=== PATIENT | male | born 1970 | race Caucasian/White ===

== ENCOUNTER 2019-01-29 02:23 | Inpatient (IN) | payer OTHER ==
[2019-01-29] VITALS (45 sets, daily range): BP systolic 59–146; BP diastolic 29–98; Ht 180.3 cm; Wt 89.5 kg
[~2019-01-29] VITALS: Ht 180.3 cm; Wt 89.5 kg
--- NOTE | ~2019-01-29 | HEMODYNAMI ---
PATIENT:ELIANE BARRAGAN MEDICAL RECORD: [id number] : 70 LOCATION:[facility] ADMISSION DATE: 01/29/19 Generatedon:01/29/20194:46 Patient name: ELIANE BARRAGAN Patient #: [id number] SSN: : 1970 Date of study: 01/29/2019 Page: Of Hemodynamic Procedure Report Patient Data Patient Demographics Procedure consent was obtained First Name: ELIANE Gender: Male Last Name: YUNG : 1970 Patient #: [id number] Age: 48 year(s) Race: Unknown Additional ID: [id number] Contact details [address]: [address] [place] [address] State: [place] City: [place] Zip code: [address] Admission Admission Data Admission Date: 01/29/2019 Admission Time: 2:48 Room #: [id number] Weight (lbs.): 185.19 Weight (kg.): 84 Lab Results Lab Result Date: 01/29/2019 Lab Result Time: 0:00 Biochemistry Name Units Result Min Max BUN mg/dl 15 --(--*-)-- 7 18 Creatinine mg/dl 1.2 --(---*)-- 0.6 1.3 CBC Name Units Result Min Max Hemoglobin g/dl 16.4 --(--*-)-- 13.5 17.5 Procedure Procedure Types Cath Procedure Diagnostic Procedure [facility] w/Coronaries PCI Procedure 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 or Stent AMI-BMS/ED Initial Procedure Description Procedure Date Procedure Date: 01/29/2019 Procedure Start Time: 4:25 Procedure End Time: 4:40 Procedure Staff Name Function Omero Bray MD Performing Physician Luba Rhodes RT Scrub Emile Anderson RN Nurse Eulalio Wyatt RT Monitor Procedure Data Cath Procedure Fluoroscopy Diagnostic fluoroscopy Total fluoroscopy Time: 3.6 time: 3.6 min min Diagnostic fluoroscopy Total fluoroscopy dose: 637 dose: 637 mGy mGy Contrast Material Contrast Material Type Amount (ml) Isovue 300 78 Entry Location Entry Primary Successful Side Size Upsize Upsize Entry Closure Succes sful Closure Location (Fr) 1 (Fr) 2 (Fr) Remarks Device Remarks Femoral Right 6 Fr Exoseal artery Short Estimated blood loss: 10 ml Diagnostic catheters Device Type Used For End Catheter Placement MULTIPACK JL 4.0 5Fr Procedure catheter MULTIPACK 3DRC 5Fr Procedure catheter MULTIPACK Pigtail 5 Fr Procedure catheter Procedure Complications No complications Procedure Medications Medication Administration Route Dosage Oxygen etCO2 Nasal cannula 2 l/min Heparin Flush Bag added to field 2 bags (1000units/500ml NS) 0.9% NaCl I.V. 100 ml/hr Lidocaine 2% added to field 20 Fentanyl I.V. 50 mcg Versed I.V. 1 mg Fentanyl I.V. 50 mcg Versed I.V. 1 mg Fentanyl I.V. 50 mcg Versed I.V. 1 mg Fentanyl I.V. 50 mcg Fentanyl I.V. 50 mcg Heparin Bolus I.V. 5000 units Integrilin (Bolus I.V. 7.3 ml 2mg/ml) Integrilin (Bolus wasted 2.7 ml 2mg/ml) Integrilin (Bolus I.C. 7.3 ml 2mg/ml) Integrilin (Bolus wasted 2.7 ml 2mg/ml) Integrilin Drip I.V. drip 13.4 ml/hr (75mg/100ml) Fentanyl I.V. 50 mcg Hemodynamics Rest HGB: 16.4 (g/dl) Heart Rate: 73 (bpm) Pressure Samples Time Site Value (mmHg) Purpose Heart Use Rate(bpm) 4:28 AO 109/82(93) Snapshot 91 Snapshots Pre Cath Intra NCS Post Cath Vital Signs Time Heart Resp SPO2 etCO2 NIBP (mmHg) Rhythm Pain Sedation Rate (ipm) (%) (mmHg) Status Level (bpm) 4:16:12 76 17 100 15.8 120/51(92) NSR 0 (11) 10(A) , No pain 4:20:19 79 17 100 19.5 132/94(114) NSR 0 (11) 10(A) , No pain 4:24:36 72 16 98 24.1 132/90(115) NSR 0 (11) 10(A) , No pain 4:28:47 94 17 80 31.6 137/94(110) NSR 0 (11) 9(A) , No pain 4:33:08 104 17 98 0 137/87(106) NSR 0 (11) 9(A) , No pain 4:37:22 99 17 99 37.6 126/82(108) NSR 0 (11) 9(A) , No pain 4:42:02 98 16 100 33.1 127/93(103) NSR 0 (11) 10(A) , No pain 4:43:38 95 17 100 36.1 133/90(99) NSR 0 (11) 10(A) , No pain Medications Time Medication Route Dose Verified Delivered Reason Notes Effectiveness by by 4:17:19 Oxygen etCO2 2 Omero Emile Per physician Nasal l/min Katarina Anderson RN cannula 4:17:28 Heparin Flush added 2 Omero Emile used for Bag to bags Katarina Anderson RN procedure (1000units/500ml field NS) 4:17:36 0.9% NaCl I.V. 100 Omero Emile Per physician ml/hr Katarina Anderson RN 4:17:45 Lidocaine 2% added 20ml Omero Emile used for to vial Katarina Anderson RN procedure field 4:23:57 Fentanyl I.V. 50 Omero Emile for sedation mcg Katarina Anderson RN 4:24:04 Versed I.V. 1 mg Omero Emile for sedation Katarina Anderson RN 4:25:24 Fentanyl I.V. 50 Omero Emile for sedation mcg Katarina Anderson RN 4:25:29 Versed I.V. 1 mg Omero Emile for sedation Katarina Anderson RN 4:27:01 Fentanyl I.V. 50 Omero Emile for sedation mcg Katarina Anderson RN 4:27:05 Versed I.V. 1 mg Omero Emile for sedation Katarina Anderson RN 4:29:21 Fentanyl I.V. 50 Omero Emile for sedation mcg Katarina Anderson RN 4:32:06 Fentanyl I.V. 50 Omero Emile for sedation mcg Katarina Anderson RN 4:32:17 Heparin Bolus I.V. 5000 Omero Emile for units Katarina Anderson RN anticoagulation 4:32:31 Integrilin I.V. 7.3 Omero Emile for (Bolus 2mg/ml) ml Katarina Anderson RN antiplatelet therapy 4:32:40 Integrilin wasted 2.7 Omero Baptiste for (Bolus 2mg/ml) ml Katarina Anderson RN antiplatelet therapy 4:34:17 Integrilin I.C. 7.3 Omero Baptiste for (Bolus 2mg/ml) ml Katarina Anderson RN antiplatelet therapy 4:36:16 Fentanyl I.V. 50 Omero Baptiste for sedation mcg Katarina Anderson RN 4:38:37 Integrilin wasted 2.7 Omero Baptiste for (Bolus 2mg/ml) ml Katarina Anderson RN antiplatelet therapy 4:38:54 Integrilin Drip I.V. 13.4 Omero Baptiste for (75mg/100ml) drip ml/hr Katarina Anderson RN antiplatelet therapy Procedure Log Time Note 3:59:56 Eulalio Wyatt RT(R) sent for patient. Start room use. 3:59:57 Time tracking: Regular hours (M-F 7:00 - 5:00) 4:00:01 Plan of Care:Hemodynamics will remain stable., Cardiac rhythm will remain stable., Comfort level will be maintained., Respiratory function will remain adequate., Patient/ family verbilizes understanding of procedure., Procedure tolerated without complication., Recovers from procedure without complications.. 4:00:10 Use device set Femoral Dx 4:00:16 Use device set TAUTH PCI 4:00:24 ACIST Hand Control (57350) opened to sterile field. 4:00:25 ACIST Manifold (63774) opened to sterile field. 4:00:27 ACIST Syringe (44872) opened to sterile field. 4:00:27 Bag Decanter (2002S) opened to sterile field. 4:00:28 Medline Cath Pack ([id number]) opened to sterile field. 4:00:30 Tegaderm 4 x 4 (1626W) opened to sterile field. 4:00:32 DIAGNOSTIC WIRE .035 260cm J wire (458538) opened to sterile field. 4:00:33 INFLATOR Merit BasixCompak (TO1160) opened to sterile field. 4:00:37 CHOICE PT Extra Support 182cm wire ([id number]) opened to sterile field. 4:00:39 SHEATH 6FR [place] (USR331) opened to sterile field. 4:11:17 Patient received from ED to CCL 1 Alert and oriented. Tansferred to table in Supine position. 4:11:17 Warm blankets applied, and bk hugger turned on for patient comfort. 4:11:18 Correct patient and procedure confirmed by team. 4:11:20 Signed procedure consent form obtained from patient. 4:11:21 ECG and BP/O2 sat monitors applied to patient. 4:14:32 Vital chart was started 4:16:30 Baseline sample Acquired. 4:16:34 Rhythm: w/ ST elevation 4:16:35 Full Disclosure recording started 4:16:39 H&P Date Dictated: 01/29/2019 Emergent; H&P N/A. 4:16:39 Pre-procedure instructions explained to patient. 4:16:40 Pre-op teaching completed and patient verbalized understanding. 4:16:44 Family unavailable. 4:16:45 Patient NPO since Midnight. 4:16:47 Is the patient allergic to Iodine/contrast media? No. 4:16:49 Is patient on blood thinner?Yes 4:16:52 ACC The patient was administered the following blood thiners within the last 24 hours: ACCPlavix 4:17:01 Patient diabetic? No. 4:17:04 Previous problem with sedation/anesthesia? No ? 4:17:05 Snore? Yes 4:17:06 Sleep apnea? No 4:17:07 Deviated septum? No 4:17:08 Opens mouth fully? Yes 4:17:09 Sticks out tongue? Yes 4:17:11 Airway obstruction? No ? 4:17:13 Dentures? Yes OUT 4:17:17 Pre procedure: right dorsailis pedis pulse 1+ Palpable, but thready & weak; easily obliterated 4:17:19 Oxygen 2 l/min etCO2 Nasal cannula was administered by Emile Anderson RN; Per physician; 4:17:28 Heparin Flush Bag (1000units/500ml NS) 2 bags added to field was administered by Emile Anderson RN; used for procedure; 4:17:31 Patient pain scale 4/10 Physician notified.. 4:17:36 0.9% NaCl 100 ml/hr I.V. was administered by Emile Anderson RN; Per physician; 4:17:38 IV patent on arrival in right forearm with 0.9% NaCl at [facility]. 4:17:41 Lab results completed and on chart. 4:17:44 Right groin area was prepped with chlora-prep and draped in sterile fashion 4:17:45 Lidocaine 2% 20ml vial added to field was administered by Emile Anderson RN; used for procedure; 4:17:46 Alarms reviewed by R. N. 4:17:47 Sharps counted by scrub and verified by R.N. 4:18:09 Physician paged 4:21:38 Patient Weight : 185.19 lbs 4:23:35 Lab Result : BUN 15 mg/dl 4::35 Lab Result : Hemoglobin 16.4 g/dl 4::35 Lab Result : Creatinine 1.2 mg/dl 4:23:39 --------ALL STOP TIME OUT------ 4:23:40 Final Timeout: patient, procedure, and site verified with staff and physician. All members of the team are in agreement. 4:23:42 Right groin site verified by team. 4:23:45 Maximum allowable Isovue 300 dose 300ml. Physician notified. (300ml for normal creatinines. For patients with creatinine of 1.7 or higher multiply weight(kg) x 5 divided by creatinine.) 4:23:49 Fire Safety Assessment: A--An alcohol-based skin anteseptic being used preoperatively., C--Open oxygen or nitrous oxide is being used., D--An ESU, laser, or fiber-optic light is being used. 4:23:52 Physical assessment completed. ASA score P 3 - A patient with severe systemic disease as per Omero Bray MD. 4:23:55 Sedation plan: IV Moderate Sedation Medication:Versed, Fentanyl 4:23:57 Fentanyl 50 mcg I.V. was administered by Emile Anderson RN; for sedation; 4:24:04 Versed 1 mg I.V. was administered by Emile Anderson RN; for sedation; 4:25:13 Procedure started. 4:25:17 Local anesthetic to right femoral artery with Lidocaine 2% by Omero Bray MD.INITIAL ACCESS ONLY 4:25:24 Fentanyl 50 mcg I.V. was administered by Emile Anderson RN; for sedation; 4:25:29 Versed 1 mg I.V. was administered by Emile Anderson RN; for sedation; 4:27:01 Fentanyl 50 mcg I.V. was administered by Emile Anderson RN; for sedation; 4:27:05 Versed 1 mg I.V. was administered by Emile Anderson RN; for sedation; 4:27:55 A 6 Fr Short sheath was inserted into the Right Femoral artery 4:27:59 DIAGNOSTIC Multipack 5Fr catheter set ([id number]) opened to sterile field. 4:28:31 A MULTIPACK JL 4.0 5Fr catheter was advanced over the wire and used for Procedure. 4:28:48 LCA angiography performed. 4:29:04 Catheter removed. 4:29:09 A MULTIPACK 3DRC 5Fr catheter was advanced over the wire and used for Procedure. 4:29:21 Fentanyl 50 mcg I.V. was administered by Emile Anderson RN; for sedation; 4:29:58 RCA angiography performed. 4:30:00 Catheter removed. 4:30:04 A MULTIPACK Pigtail 5 Fr catheter was advanced over the wire and used for Procedure. 4:31:10 LV angiography performed. 4:31:11 LV gram done using QUINTERO 4:31:16 EF : 40 % 4:31:20 Injector settings: Ml/sec: 10, Volume: 20, 4:31:22 Catheter removed. 4:32:06 Fentanyl 50 mcg I.V. was administered by Emile Anderson RN; for sedation; 4:32:08 GUIDE 6FR AR 2.0 catheter ([id number]) opened to sterile field. 4:32:16 6 Fr AR 2 guide catheter was inserted over the wire 4:32:17 Heparin Bolus 5000 units I.V. was administered by Emile Anderson RN; for anticoagulation; 4:32:21 CPTXS wire advanced. 4:32:31 Integrilin (Bolus 2mg/ml) 7.3 ml I.V. was administered by Emile Anderson RN; for antiplatelet therapy; 4:32:40 Integrilin (Bolus 2mg/ml) 2.7 ml wasted was administered by Emile Anderson RN; for antiplatelet therapy; 4:34:07 Wire advanced across lesion. 4:34:17 Integrilin (Bolus 2mg/ml) 7.3 ml I.C. was administered by Emile Anderson RN; for antiplatelet therapy; 4:34:58 Place stent Inflation Number: 1 A INTEGRITY RX 3.5 x 26 stent ([id number]) was prepped and advanced across the Dist RCA. The stent was deployed at 17 ELLEN for 0:10 (min:sec). 4:35:40 Inflation number: 2 The stent balloon was then re-inflated across the Dist RCA to 9 ELLEN for 0:10 (min:sec). 4:36:16 Fentanyl 50 mcg I.V. was administered by Emile Anderson RN; for sedation; 4:36:25 Inflation number: 3 The stent balloon was then re-inflated across the Dist RCA to 3 ELLEN for 0:10 (min:sec). 4:36:54 Inflation number: 4 The stent balloon was then re-inflated across the Dist RCA to 5 ELLEN for 0:10 (min:sec). 4:37:18 EXOSEAL 6Fr (EX600) opened to sterile field. 4:37:33 Stent catheter was removed intact over wire. 4:37:33 Wire removed. 4:37:34 Guide catheter removed. 4:37:43 Sheath removed intact; hemostasis achieved with Exoseal to the Right Femoral artery. 4:37:54 Procedure ended.(Physican Out) 4:38:11 Fluoroscopy time 03.60 minutes. 4:38:15 Fluoroscopy dose: 637 mGy 4:38:15 Flurop Dose total: 637 4:38:19 Contrast amount:Isovue 300 78ml. 4:38:21 Sharps counted by scrub and verified by R.N. 4:38:22 Insertion/operative site no bleeding no hematoma. 4:38:25 Post-op/insertion site Right Femoral artery dressed using a 4 x 4 and Tegaderm. 4:38:26 Post Procedure Pulses reassessed and unchanged 4:38:29 Post-procedure physical assessment completed. ASA score P 2 - A patient with mild systemic disease as per Omero Bray MD. 4:38:31 Post procedure rhythm: sinus rhythm 4:38:37 Integrilin (Bolus 2mg/ml) 2.7 ml wasted was administered by Emile Anderson RN; for antiplatelet therapy; 4:38:39 Estimated blood loss: 10 ml 4:38:41 Post procedure instruction explained to patient.Patient verbalizes understanding. 4:38:42 Patient needs reinforcement of post procedure teaching. 4:38:50 Procedure and supply charges have been captured, reviewed, submitted and are correct. 4:38:52 Procedure Complication : No complications 4:38:54 Integrilin Drip (75mg/100ml) 13.4 ml/hr I.V. drip was administered by Emile Anderson RN; for antiplatelet therapy; 4:40:32 Vital chart was stopped 4:40:32 See physician's report for complete and final results. 4:40:35 Report given to CVICU. 4:40:39 Patient transfered to CVICU with Bed. 4:40:41 Procedure ended. 4:40:41 Full Disclosure recording stopped 4:45:54 End room use (Document Last) Intervention Summary Intervention Notes Time ActionType Lesion and Equipment Action# Pressure Duration Attributes Used 4:34:58 Place stent Dist RCA INTEGRITY RX 1 17 00:10 3.5 x 26 stent ([id number]) 4:35:40 Reinflate Dist RCA INTEGRITY RX 2 9 00:10 stent 3.5 x 26 balloon stent ([id number]) 4:36:25 Reinflate Dist RCA INTEGRITY RX 3 3 00:10 stent 3.5 x 26 balloon stent ([id number]) 4:36:54 Reinflate Dist RCA INTEGRITY RX 4 5 00:10 stent 3.5 x 26 balloon stent ([id number]) Device Usage Item Name Manufacture Quantity Catalog Number Hospital Part Current Mini [facility] Lot# / Charge Number Stock Stock Serial# Code ACIST Hand Acist 1 29935 469114 871952 797153 5 Control Medical (60740) Systems Inc ACIST Acist 1 36234 428543 607329 816754 5 Manifold Medical (00835) Systems Inc ACIST Acist 1 80640 182310 993307 243635 20 Syringe Medical (04696) Systems Inc Bag Decanter Microtek 1 2001S 700095 34317 548507 5 (2001S) Medical Inc. Medline Cath Medline 1 [id number] 783705 96314 284891 5 Pack ([id number]) Tegaderm 4 x 3M 1 1626W 261683 929781 850270 5 4 (1626W) DIAGNOSTIC [facility] Octavio 1 693905 431176 187168 045514 30 WIRE .035 260cm J wire (625990) INFLATOR Merit 1 NL3701 725561 332887 058909 15 [facility] Medical BasixCompak (NB8411) CHOICE PT [place] 1 [id number] 609668 626231 756322 5 Extra Scientific Support 182cm wire ([id number]) SHEATH 6FR Terumo 1 VEH548 872854 532207 655843 40 [place] (DLU618) DIAGNOSTIC Cardinal 1 EN7238 565190 49519 232019 30 Multipack Health 5Fr catheter set (SD3729) MULTIPACK JL Cardinal 1 432194 5 4.0 5Fr Health catheter MULTIPACK Cardinal 1 285460 5 3DRC 5Fr Health catheter MULTIPACK Cardinal 1 404185 5 Pigtail 5 Fr Health catheter GUIDE 6FR AR Medtronic 1 KP4AI76 437355 38575 709358 1 2.0 catheter (UD6AD65) INTEGRITY RX Medtronic 1 [id number] 773036 090565 617911 5 [id number] 3.5 x 26 stent ([id number]) EXOSEAL 6Fr Cardinal 1 EX600 604959 910819 085969 10 (EX600) Health Signature Audit [place] Stage Time Signature Unsigned Intra-Procedure 01/29/2019 Eulalio Wyatt 4:46:14 AM RT(R) Signatures Monitor : Eulalio Wyatt RT Signature : Date : Time : [id number] [place] [address]
[2019-01-29 03:04] LABS: HEMATOCRIT 47.9 % (42.0-54.0); MCH 29.8 pg (26.0-34.0); MCHC 33.4 g/dL (31.0-37.0); MCV 89.2 fL (80.0-100.0); RBC 5.37 10x6/uL (4.20-6.10); RDW 13.3 % (11.5-14.5); WBC 18.5 10x3/uL (4.8-10.8)
[2019-01-29 03:14] LABS: APTT 37.4 SECONDS (22.8-39.4); INR 0.98 (0.85-1.17); PROTIME 12.5 SECONDS (11.6-15.0)
--- NOTE | 2019-01-29 03:25 | NUR ---
ANSWER CALL LIGHT D/T INCREASED PAIN. MARKED CHANGE IN ST ELEVATION IN LEAD 2. INCREASED NITRO GLYCERING TITRATE TO AFFECT AT 25MCG. REPEATED EKG AT 0329. MARKED ST ELEVATION IN MULTIPLE LEADS. LEAD 2 3 INCREASED FROM MAGNITUDE 4 TO 9 MARKED ELEVATION IN V3- V6 FROM 3 TO 6. NOTIFIED MD ACTIVATED [facility]
--- NOTE | 2019-01-29 05:15 | NUR ---
DR POWELL INFORMED OF PT STATUS. VS UNSTABLE NEW ORDERS RECEIVED. DECREASE IN BP NOTED. HR LABILE. PT IN DISTRESS. GAURDING ABD. DIAPHERETIC COMPLAINING OF R GROIN PAIN. PT COOL TO TOUCH. PEDAL PULSE LOST. POPLITEAL PULSE DOPPLERABLE. WILL CONTINUE TO CARRY OUT ORDERS SEE JAN. ORDER TO GIVE 1 UNIT OF PRBC IF HGB DROPS TO 12.
[2019-01-29 05:38] LABS: BASOPHILS 0.1 % (0-2); EOSINOPHILS 0.1 % (0-7); HEMATOCRIT 42.5 % (42.0-54.0); HEMOGLOBIN 14.1 g/dL (13.5-17.5); IMMATURE GRANULOCYTES 0.3 % (0-5); LYMPHOCYTES 16.4 % (15-50); MCHC 33.2 g/dL (31.0-37.0); MCV 90.4 fL (80.0-100.0); MEAN PLATELET VOLUME 11.2 fL (7.4-10.4); MONOCYTES 4.9 % (2-11); NEUTROPHILS 78.2 % (40-80); PLATELET COUNT 278 10x3/uL (130-400); RDW 13.4 % (11.5-14.5); WBC 15.6 10x3/uL (4.8-10.8)
[2019-01-29 05:56] LABS: ANION GAP 16.7 mmol/L (8-16); CALCIUM 8.1 mg/dL (8.5-10.1); CARBON DIOXIDE 19.9 mmol/L (21.0-32.0); CREATININE - SERUM 1.2 mg/dL (0.6-1.3); POTASSIUM - SERUM 4.6 mmol/L (3.5-5.1)
[2019-01-29 06:50] LABS: BASOPHILS 0.3 % (0-2); EOSINOPHILS 0.2 % (0-7); HEMATOCRIT 39.6 % (42.0-54.0); HEMOGLOBIN 12.6 g/dL (13.5-17.5); IMMATURE GRANULOCYTES 0.8 % (0-5); MCH 30.2 pg (26.0-34.0); MCHC 31.8 g/dL (31.0-37.0); MEAN PLATELET VOLUME 11.2 fL (7.4-10.4); MONOCYTES 6.7 % (2-11); PLATELET COUNT 289 10x3/uL (130-400); RBC 4.17 10x6/uL (4.20-6.10); RDW 13.8 % (11.5-14.5); WBC 19.3 10x3/uL (4.8-10.8)
[2019-01-29 06:54] LABS: CALC OSMOLALITY 281 mosm/kg (275-300); CHLORIDE - SERUM 106 mmol/L (98-107); CREATININE - SERUM 1.1 mg/dL (0.6-1.3); GLUCOSE 187 mg/dL (74-106); POTASSIUM - SERUM 4.6 mmol/L (3.5-5.1); SODIUM 138 mmol/L (136-145); UREA NITROGEN 16 mg/dL (7-18); eGFR NON AFRICAN AMERICAN 76 mL/min (90-120)
--- NOTE | 2019-01-29 07:10 | NUR ---
SHIFT REPORT RECEIVED. PT AA&OX4. FEMSTOP IN PLACE AT 74MMHG. POSTERIOR TIBIAL PULSE PALPABLE. HAS 20G PIV ON R-FORARM WITH LEVOPHED AT 26MCG/MIN, JESSICA AT 0.2MCG/KG/MIN AND NS AT 100ML/HR. PAIN RATED AT 1.5/10. NO BRUISING NOTED AT R-GROIN SITE. AREA IS HARD AND PAINFUL TO TOUCH. ON 2L ON O2 VIA NC. SHIFT ASSESSMENT COMPLETED. WILL CONTINUE TO MONITOR.
--- NOTE | 2019-01-29 07:45 | NUR ---
MONUMENT ERECTOR STAFF AT BEDSIDE. REPOSITIONED FEM STOP 138MMHG.
--- NOTE | 2019-01-29 08:05 | NUR ---
PT IN EXTREME PAIN. UNABLE TO PALPATE PULSE ON LLE. FEMN STOP PRESSURE RELEASED BY CHARGE NURSE. LEVOPHED DRIP AT 24MCG/MIN. WILL CONTINUE TO MONITOR.
--- NOTE | 2019-01-29 08:52 | NUR ---
UNIT OF BLOOD INITIATED AT 0720. DR. MANCUSO CALLED TO SEE HOW PATIENT WAS DOING. ORDERED ANOTHER 1L FLUID BOLUS TO BE GIVEN WITH UNIT OF BLODD. FEMSTOP PRESSURE AT 57MMHR. POSTERIOR TIBIAL PULSE PALPABLE.
--- NOTE | 2019-01-29 09:06 | NUR ---
ATTEMPTED TO INCREASE FEMSTOP PRESSURE. PT DID NOT TOLERATE. DR. POWELL AT BEDSIDE. HE SAID IT WAS OK TO DECREASE PRESSURE. CURRENT FEM STOP PRESSURE 60MMHG. WILL CONTINUE TO MONITOR.
--- NOTE | 2019-01-29 09:13 | NUR ---
PT CONTINUED TO COMPLAINT OF SEVERE PAIN. FEM STOP PRESSURE DECREASED TO 33MMGH. FAMILY AT BEDSIDE. JESSICA DECREASED TO 0.1MCG/KG/MIN. WILL CONTINUE TO WEAN OFF PRESSORS TOLERATED. 1L BOLUS FINISHED INFUSING AT THIS TIME.
--- NOTE | 2019-01-29 10:04 | NUR ---
UNIT OF BLOOD FINISHED INFUSING. SBP 130S. AT BEGINNING OF SHIFT AND BEFORE UNIT OF BLLOD, PT'S TEMP WAS 94.8. BEAR HUGGER PLACED ON PT. TEMP STEADILY INCREASED. AT THIS TIME IT IS 98.1. BEAR HUGGER TURNED OFF AT THIS TIME.
--- NOTE | 2019-01-29 10:06 | NUR ---
JESSICA DRIP TURNED OFF AT 0930. LEVOPHED DRIP DECREASED TO 18MCG/MIN. WILL CONTINUE TO WEAN LEVOPHED TOLERATED.
--- NOTE | 2019-01-29 10:19 | NUR ---
LEVOPHED DRIP DECREASED TO 15MCG/MIN. SBP 122.
--- NOTE | 2019-01-29 10:21 | NUR ---
DR. POWELL STOPPED BY TO ASSESS PT. SPOKE WITH PATIENT AND FAMILY. FEMSTOP TO BE TAKEN OFF AT [address] POWELL'S ORDERS.
--- NOTE | 2019-01-29 10:52 | NUR ---
BP 123/84. LEVOPHED DRIP DECREASED TO 13MCG/MIN.
[2019-01-29 10:56] LABS: HEMATOCRIT 40.3 % (42.0-54.0); HEMOGLOBIN 13.3 g/dL (13.5-17.5)
--- NOTE | 2019-01-29 10:59 | NUR ---
DR. POWELL PAGED AT THIS TIME.
--- NOTE | 2019-01-29 11:05 | NUR ---
FEMSTOP AT 0MMGH AT THIS TIME. REMAINS IN PLACE. WILL CONTINUE TO MONITOR.
--- NOTE | 2019-01-29 11:26 | NUR ---
REPORTS DISCOMFORT ON ABDOMEN WHEN MOVING IN BED. FEMSTOP PRESSURE HAS BEEN RELEASED AND LOOSEN. SBP IN 120S. PLACED PT ON BED [place] AT THIS TIME. REPORTED SOME NAUSEA AT THIS TIME. 4MG ZOFRAN IV GIVEN PER ORDERS. WILL CONTINUE TO MONITOR.
--- NOTE | 2019-01-29 11:46 | NUR ---
DR. POWELL CHECKED ON PT. ASKED IF HE WANTED TO HOLD PLAVIX OR ASPIRIN. HE SAID TO GIVE THEM. FEMSTOP OFF AT THIS TIME. SBP IN 130S. LEVOPHED DRIP DECREASED TO 10MCG/MIN.
--- NOTE | 2019-01-29 13:10 | NUR ---
SBP IN 140S. LEVOPHED DRIP TURNED OFF AT THIS TIME. WILL CONTINUE TO MONITOR.
--- NOTE | 2019-01-29 14:57 | HP ---
PATIENT: ELIANE QUIJANO MEDICAL RECORD: [id number] ACCOUNT: [id number] LOCATION:[id number] : 70 ADMISSION DATE: 01/29/19 PCP: No PCP HISTORY AND PHYSICAL EXAMINATION DIAGNOSES: 1. Inferior myocardial infarction. 2. Coronary artery disease. HISTORY OF PRESENT ILLNESS: Mr. Quijano presented to [facility] with acute chest pain, found to have an acute inferior myocardial infarction, underwent thrombolytic therapy. Initially improved. He is now, however, worse. His ST elevation is worse, chest pain is worse. PHYSICAL EXAMINATION: GENERAL APPEARANCE: Well-nourished, well-developed, appears stated age. Level of distress, comfortable. PSYCHIATRIC: Mental status, alert, normal affect. Orientation, oriented to time, place and person. EYES: Lids and conjunctiva, noninjected. No discharge, no pallor. ENT: Lips, teeth, gums, normal dentition. Oropharynx, no cyanosis, no pallor. NECK: Carotid arteries, bilateral normal upstroke, no bruits, no thrills. JUGULAR VEINS: No jugular venous pressure or distention. CERVICAL LYMPH NODES: Nontender, nonenlarged. THYROID: Not enlarged. Nontender. No nodules. LUNGS: Respiratory effort, unlabored. CHEST: Normal curvature. No thoracic deformity. No chest wall tenderness. Percussion, resonant. Auscultation, clear. No wheezes, no rales, no rhonchi. CARDIOVASCULAR: Precordial exam, nondisplaced. No heaves or pericardial thrills. Rate and rhythm, regular. Heart sounds, normal S1, normal S2. No S3, no gallop, no rub. Systolic murmur, not heard. Diastolic murmur, not heard. EXTREMITIES: No cyanosis, no edema. Peripheral pulses, full and equal in all extremities, except as noted. No bruits appreciated. ABDOMEN: Soft, nondistended. Normal aorta. No bruit. Nontender. No masses. Liver, nontender, no hepatomegaly. Spleen, nontender, no splenomegaly. MUSCULOSKELETAL: No joint tenderness. No joint swelling. No erythema. NEUROLOGICAL: Normal gait, normal strength, normal tone. SKIN: Warm and dry. OVERALL IMPRESSION: Acute inferior myocardial infarction. We will proceed with coronary angiography. Further care depends upon the findings of the angiography. 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
--- NOTE | 2019-01-29 14:57 | OP ---
PATIENT NAME: ELIANE BARRAGAN MEDICAL RECORD: [id number] :70 [facility]ATION[id number] ADMISSION DATE:01/29/19 SURGEON: SONIA POWELL MD DATE OF OPERATION: 01/29/2019 PROCEDURES: 1. PTCA and stent to the RCA. 2. Left heart catheterization. 3. Selective coronary angiography. 4. Left ventriculogram. INDICATIONS: Acute inferior myocardial infarction. PROCEDURE IN DETAIL: After informed consent was obtained and after a detailed description of the risks, benefits as well as alternative therapies, the patient elected to proceed with angiogram and angioplasty. The right femoral area was prepped and draped in the normal sterile fashion. Right femoral artery was cannulated via modified Seldinger knee with placement of 6-Tamazight sheath. All catheters exchanged through this sheath. FINDINGS: Left ventriculogram was performed in the standard 30-degree QUINTERO view, reveals inferior hypokinesis, ejection fraction in the 40% range. SELECTIVE CORONARY ANGIOGRAPHY: 1. Left main is with no significant angiographic disease. 2. Left anterior descending has 90% to 95% stenosis in the proximal vessel. 3. Left circumflex has 75% stenosis in the proximal vessel. 4. Right coronary is a very large dominant vessel with a 90% stenosis and active thrombus in the mid vessel. PTCA AND STENT OF THE RCA: The stent used was a 3.5 x 26 mm Integrity. Result was 0% residual stenosis. OVERALL IMPRESSION: Successful percutaneous transluminal coronary angioplasty and stent of the right coronary artery going from 90% initial stenosis with thrombus to 0% residual. TRANSINT:[id number] Voice Confirmation ID: [id number] DOCUMENT ID: [id number] SONIA POWELL MD at 1457 CC: [id number] DICTATION DATE: 01/29/19 0444 MAMMALOGIST: 01/29/19 0520 ADM IN [place] [id number] [place] [address]
--- NOTE | 2019-01-29 16:32 | NUR ---
BED BATH GIVEN AT THIS TIME. COMPLETE LINEN CHANGE PROVIDED. PT SAT ON SIDE OF BED AND DANGLED FOR A FEW MINUTES. HR INCREASED TO 158. REPOSITIONED BACK IN BED. HR RATE SLOWLY DECREASED TO 120S. MORPHINE IV GIVEN FOR PAIN. ICE WATER PROVIDED. VOIDED 200ML OF CONCENTRATED YELLOW URINE. FAMILY AT BEDSIDE. NO FURTHER NEEDS AT THIS TIME. WILL CONTINUE TO MONITOR.
--- NOTE | 2019-01-29 19:00 | NUR ---
REPORT RECIEVED, SHIFT ASSESSMENT COMPLETE, PLEASE SEE FLOW SHEETS FOR DETAILS. FAMILY AT BEDSIDE, UPDATE GIVEN. PT C/O PAIN IN RLQ OF ABDOMEN WITH MOVEMENT/COUGHING ONLY, NO PAIN OTHERWISE. C/O NUMBNESS IN RLE, PEDAL PULSE PALPABLE, GOOD SENSTATION NOTED, CAP REFIL WNL. HEMODYNAMICALLY STABLE, BED LOW AND LOCKED, CALL LIGHT IN REACH. PERSONAL BELONGINGS IN REACH. WILL CONTINUE PLAN OF CARE.
--- NOTE | 2019-01-29 21:00 | NUR ---
TOLERATING PO WELL. ADVANCED DIET TO FULL LIQUID. NEEDS MET. FAMILY AT BEDSIDE, QUESTIONS ANSWERED. NO FURTHER QUESTIONS FROM FAMILY OR PATIENT. HEMODYNAMICALLY STABLE. WILL CONTINUE PLAN OF CARE.
--- NOTE | 2019-01-29 23:00 | NUR ---
REASSESSMENT COMPLETE, PLEASE SEE FLOW SHEETS FOR DETAILS. NO ACUTE CHANGES FROM PREVIOUS ASSESSMENT TO NOTE. WILL CONTINUE PLAN OF CARE.
[2019-01-30] VITALS (22 sets, daily range): BP systolic 106–128; BP diastolic 71–85
--- NOTE | 2019-01-30 01:00 | NUR ---
RESTING, VSS, WILL CONTINUE PLAN OF CARE.
--- NOTE | 2019-01-30 03:00 | NUR ---
REASSESSMENT COMPLETE, PLEASE SEE FLOW SHEETS FOR DETAILS. HEMODYNAMICALLY STABLE, BED LOW AND LOCKED, CALL LIGHT IN REACH. WILL CONTINUE PLAN OF CARE.
--- NOTE | 2019-01-30 05:00 | NUR ---
PROVIDED BED BATH, SUPPLIES PROVIDED. ASSISTED TO CHAIR, TOLERATED WELL. FAMILY TO BEDSIDE, QUESTIONS ANSWERED. HEMODYNAMICALLY STABLE. CALL LIGHT IN REACH. FEET ELEVATED. WILL CONTINUE PLAN OF CARE.
[2019-01-30 05:47] LABS: BASOPHILS 0.1 % (0-2); EOSINOPHILS 0.3 % (0-7); IMMATURE GRANULOCYTES 0.6 % (0-5); LYMPHOCYTES 25.5 % (15-50); MCH 29.8 pg (26.0-34.0); MCHC 32.9 g/dL (31.0-37.0); MEAN PLATELET VOLUME 10.8 fL (7.4-10.4); MONOCYTES 8.3 % (2-11); NEUTROPHILS 65.2 % (40-80); RBC 3.39 10x6/uL (4.20-6.10); RDW 13.7 % (11.5-14.5); WBC 15.5 10x3/uL (4.8-10.8)
[2019-01-30 05:49] LABS: HEMATOCRIT 30.7 % (42.0-54.0); HEMOGLOBIN 10.1 g/dL (13.5-17.5); MCV 90.6 fL (80.0-100.0); PLATELET COUNT 184 10x3/uL (130-400)
[2019-01-30 06:18] LABS: CALC OSMOLALITY 276 mosm/kg (275-300); CALCIUM 7.6 mg/dL (8.5-10.1); CHLORIDE - SERUM 103 mmol/L (98-107); GLUCOSE 149 mg/dL (74-106); SODIUM 137 mmol/L (136-145); UREA NITROGEN 13 mg/dL (7-18); eGFR NON AFRICAN AMERICAN 85 mL/min (90-120)
--- NOTE | 2019-01-30 06:33 | NUR ---
WALKED AROUND ROOM AND UP TO CAMODE, NO BM TO NOTE. WALKED APPROX 60 STEPS. UP TO CHAIR. HEMODYNAMICALLY STABLE. WILL CONTINUE PLAN OF CARE.
[2019-01-30 06:38] LABS: CARBON DIOXIDE 21.4 mmol/L (21.0-32.0); POTASSIUM - SERUM 3.9 mmol/L (3.5-5.1)
--- NOTE | 2019-01-30 07:00 | NUR ---
REC'C CARE OF PT. A&O X3. SITTING UP IN CHAIR. DENIES NEEDS.
--- NOTE | 2019-01-30 07:40 | NUR ---
BREAKFAST TRAY SERVED.
--- NOTE | 2019-01-30 07:44 | NUR ---
BREAKFAST TRAY SERVED.
--- NOTE | 2019-01-30 08:38 | NUR ---
UP TO BATHROOM WITH ASSISTANCE. NO STOOL. GAS ONLY.
--- NOTE | 2019-01-30 09:28 | NUR ---
FAMILY AT BEDSIDE. UPDATED BY PT.
--- NOTE | 2019-01-30 09:50 | NUR ---
UP TO BATHROOM WITH ASSISTANCE. HAD SEMIFORMED BROWN STOOL, MEDIUM. PRICARE PERFORMED AND BACK IN CHAIR.
--- NOTE | 2019-01-30 10:20 | NUR ---
WALKS AROUND IN ROOM WITHOUT ASSISTANCE.
--- NOTE | 2019-01-30 10:24 | NUR ---
REASSESSMENT COMPLETED PER FLOW SHEET. NO ACUTE CHANGES.
--- NOTE | 2019-01-30 10:39 | NUR ---
DR. DOVER AT BEDSIDE.
--- NOTE | 2019-01-30 10:40 | NUR ---
ORDERS REC'D FROM DR. DOVER FOR ECHO NOW AND CBC AT 1300.
--- NOTE | 2019-01-30 11:00 | NUR ---
DENIES CP. NO CHANGES IN ABD OR RIGHT GROIN SITE. ABD REMIANS FIRM AND DISTENDED AND TENDER TO TOUCH. RIGHT GROIN SITE REMAINS BRUISED BUT SOFT AROUND SITE. REMAINS UP IN CHAIR. CLWR. CPOC.
--- NOTE | 2019-01-30 11:28 | NUR ---
UP TO BATHROOM WITH ASSISTANCE. URINATED.
--- NOTE | 2019-01-30 12:00 | NUR ---
LUNCH TRAY SERVED.
--- NOTE | 2019-01-30 12:24 | NUR ---
GETS SELF OUT OF CHAIR AND TO BATHROOM WITHOUT DIFFICULTY. URINATES.
--- NOTE | 2019-01-30 13:39 | NUR ---
RATES PAIN REASSESSMENT 2/10 ABD AFTER MORPHINE ADMN.
[2019-01-30 13:40] LABS: BASOPHILS 0.1 % (0-2); EOSINOPHILS 0.3 % (0-7); HEMATOCRIT 30.3 % (42.0-54.0); IMMATURE GRANULOCYTES 0.7 % (0-5); LYMPHOCYTES 18.2 % (15-50); MCH 30.1 pg (26.0-34.0); MCV 91.3 fL (80.0-100.0); MEAN PLATELET VOLUME 10.6 fL (7.4-10.4); MONOCYTES 10.7 % (2-11); PLATELET COUNT 179 10x3/uL (130-400); RBC 3.32 10x6/uL (4.20-6.10); RDW 13.6 % (11.5-14.5); WBC 13.6 10x3/uL (4.8-10.8)
--- NOTE | 2019-01-30 13:50 | NUR ---
RESULTS OF CBC CALLED TO DR. DOVER. NO NEW ORDERS.
--- NOTE | 2019-01-30 13:58 | NUR ---
REMOVED PIV IV AT RIGHT AC BECAUSE OF REDNESS.
--- NOTE | 2019-01-30 14:47 | NUR ---
AMBULATES SELF IN [address] IN FRONT OF NURSING STATION.
--- NOTE | 2019-01-30 14:50 | NUR ---
REASSESSMENT COMPLETED PER FLOW SHEET. NO ACUTE CHANGES.
--- NOTE | 2019-01-30 16:30 | NUR ---
DINNER TRAY SERVED.
--- NOTE | 2019-01-30 17:19 | NUR ---
OUT OF CHAIR INDEPENDENTLY TO BATHTROOM WITHOUT DIFFICULTY.
--- NOTE | 2019-01-30 17:25 | NUR ---
BACK TO BED FROM CHAIR.
--- NOTE | 2019-01-30 17:26 | NUR ---
ECHO BEING DONE.
--- NOTE | 2019-01-30 19:00 | NUR ---
REPORT RECIEVED, SHIFT ASSESSMENT COMPLETE, PLEASE SEE FLOW SHEETS FOR DETAILS. FAMILY AT BEDSIDE, QUESTIONS ANSWERED. PATIENT DENIES PAIN/NEEDS ATT. HEMODYNAMICALLY STABLE. BED LOW AND LOCKED, CALL LIGHT IN REACH. WILL CONTINUE PLAN OF CARE.
--- NOTE | 2019-01-30 21:00 | NUR ---
RESTING. DENIES PAIN/NEEDS. HEMODYNAMICALLY STABLE. WILL CONTINUE PLAN OF CARE.
--- NOTE | 2019-01-30 23:05 | NUR ---
REASSESSMENT COMPLETE, PLEASE SEE FLOW SHEETS FOR DETAILS. HEMODYNAMICALLY STABLE. BED LOW AND LOCKED, CALL LIGHT IN REACH. WILL CONINTUE PLAN OF CARE.
--- NOTE | 2019-01-30 23:39 | NUR ---
CM INDICATED INCREASE IN HR TO 155 BMP, ENTERED PATIENT ROOM, STATED HE STOOD UP TO PLACE PILLOW UNDER BUTTOCKS. WITNESSED HR DECREASE TO 123 BMP. PATIENT HAD NO COMPLAINTS OF LIGHTHEADEDNESS OR DIZZINESS. SINUS TACH NOTED THROUGHOUT. BP STABLE. UP IN CHAIR, WILL CONTINUE TO MONITOR.
[2019-01-31] VITALS (32 sets, daily range): BP systolic 110–125; BP diastolic 69–87
--- NOTE | 2019-01-31 01:00 | NUR ---
SLEEPING, VSS, CHAIR LOCKED, FEET UP, HEELS BRIDGED. WILL CONTINUE TO MONITOR.
--- NOTE | 2019-01-31 02:48 | NUR ---
REASSESSMENT COMPLETE, PLEASE SEE FLOW SHEETS FOR DETAILS. HEMODYNAMICALLY STABLE, CHAIR LOCKED, LEGS ELEVATED. CALL LIGHT IN REACH. WILL CONTINUE PLAN OF CARE.
[2019-01-31 05:59] LABS: BASOPHILS 0.2 % (0-2); EOSINOPHILS 0.5 % (0-7); HEMATOCRIT 27.7 % (42.0-54.0); HEMOGLOBIN 9.1 g/dL (13.5-17.5); IMMATURE GRANULOCYTES 0.5 % (0-5); LYMPHOCYTES 22.7 % (15-50); MCH 29.9 pg (26.0-34.0); MCHC 32.9 g/dL (31.0-37.0); MCV 91.1 fL (80.0-100.0); MEAN PLATELET VOLUME 10.6 fL (7.4-10.4); NEUTROPHILS 66.1 % (40-80); PLATELET COUNT 187 10x3/uL (130-400); RBC 3.04 10x6/uL (4.20-6.10); RDW 13.6 % (11.5-14.5); WBC 12.5 10x3/uL (4.8-10.8)
[2019-01-31 06:36] LABS: ALKALINE PHOSPHATASE 56 U/L (46-116); ALT (SGPT) 44 U/L (10-68); BILIRUBIN - TOTAL 0.76 mg/dL (0.2-1.3); CALCIUM 8.2 mg/dL (8.5-10.1); CHLORIDE - SERUM 102 mmol/L (98-107); CREATININE - SERUM 0.9 mg/dL (0.6-1.3); GLUCOSE 130 mg/dL (74-106); PROTEIN - SERUM 6.2 g/dL (6.4-8.2); SODIUM 135 mmol/L (136-145); eGFR NON AFRICAN AMERICAN > 90 mL/min (90-120)
[2019-01-31 06:37] LABS: CALC OSMOLALITY 270 mosm/kg (275-300); CARBON DIOXIDE 27.2 mmol/L (21.0-32.0); UREA NITROGEN 9 mg/dL (7-18)
--- NOTE | 2019-01-31 07:00 | NUR ---
REC'D CARE OF PT. AMBULATING, ON TELEMETRY INDEPENDENTLY.
--- NOTE | 2019-01-31 09:00 | NUR ---
AMBULATES TO BATHROOM INDEPEDENTLY. GETS BACK TO BED AND FROM BED TO CHAIR INDEPENDENTLY WITHOUT DIFFICULTY.
--- NOTE | 2019-01-31 10:45 | NUR ---
UNIT 1/2 PRBC INITIATED.
--- NOTE | 2019-01-31 11:00 | NUR ---
REASSESSMENT COMPLETED PER FLOW SHEET. NO ACUTE CHANGES.
--- NOTE | 2019-01-31 12:03 | NUR ---
UNIT 1/2 PRBC CONTINUE TO TRANSFUSE WITHOUT S/S OF REACTION TO TRANSFUSION.
--- NOTE | 2019-01-31 12:15 | NUR ---
UNIT 2/2 PRBC INITIATED.
--- NOTE | 2019-01-31 14:28 | NUR ---
REASSESSMENT COMPLETED VIA FLOW SHEET. NO ACUTE CHANGES.
[2019-01-31 17:17] LABS: BASOPHILS 0.3 % (0-2); EOSINOPHILS 0.7 % (0-7); HEMATOCRIT 32.9 % (42.0-54.0); IMMATURE GRANULOCYTES 0.6 % (0-5); LYMPHOCYTES 29.1 % (15-50); MCH 29.6 pg (26.0-34.0); MCHC 33.4 g/dL (31.0-37.0); MEAN PLATELET VOLUME 10.7 fL (7.4-10.4); MONOCYTES 7.3 % (2-11); PLATELET COUNT 157 10x3/uL (130-400); RDW 15.2 % (11.5-14.5); WBC 11.4 10x3/uL (4.8-10.8)
[2019-01-31 17:18] LABS: MCV 88.4 fL (80.0-100.0); RBC 3.72 10x6/uL (4.20-6.10)
--- NOTE | 2019-01-31 17:49 | NUR ---
OFFERED SERVICES, DENIES NEEDS.
--- NOTE | 2019-01-31 19:40 | NUR ---
REPORT RECEIVED, SHIFT ASSESSEMENT COMPLETED PER FLOW SHEET. AAOX4. PPP. LT UPPER ARM MIDLINE PATENT, NO SIGNS OF INFECTION OR INFILTRATION. SEE FLOW SHEET FOR COMPLETE ASSESSMENT. WILL CONTINUE TO MONITOR.
--- NOTE | 2019-01-31 21:00 | NUR ---
DENIES NEEDS, AT BEDSIDE. WILL CONTINUE TO MONITOR.
--- NOTE | 2019-01-31 23:11 | NUR ---
REASSESSMENT COMPLETED PER FLOW SHEET, SEE FOR DETAILS. NO ACUTE CHANGES NOTED. DENIES PAIN OR NEEDS. CALL LIGHT WITHIN REACH. WILL CONTINUE TO MONITOR.
[2019-02-01] VITALS (16 sets, daily range): BP systolic 97–142; BP diastolic 60–87
--- NOTE | 2019-02-01 01:00 | NUR ---
RESTING, NO ACUTE DISTRESS NOTED. CALL LIGHT WITHIN REACH.
--- NOTE | 2019-02-01 03:21 | NUR ---
REASSESSMENT COMPLETED PER FLOW SHEET, SEE FOR DETAILS. NO ACUTE CHANGES NOTED. DENIES NEEDS. CALL LIGHT WITHIN REACH. WILL CONTINUE TO MONITOR.
--- NOTE | 2019-02-01 03:38 | NUR ---
AMBULATING IN UNIT, GAIT STEADY, WITH HIM. DENIES NEEDS. WILL CONTINUE TO MONITOR.
[2019-02-01 04:16] LABS: BASOPHILS 0.3 % (0-2); EOSINOPHILS 0.9 % (0-7); HEMATOCRIT 32.8 % (42.0-54.0); IMMATURE GRANULOCYTES 0.6 % (0-5); MCH 29.3 pg (26.0-34.0); MCHC 33.5 g/dL (31.0-37.0); MCV 87.5 fL (80.0-100.0); MEAN PLATELET VOLUME 10.4 fL (7.4-10.4); MONOCYTES 7.9 % (2-11); NEUTROPHILS 65.3 % (40-80); PLATELET COUNT 184 10x3/uL (130-400); RBC 3.75 10x6/uL (4.20-6.10); RDW 15.3 % (11.5-14.5); WBC 11.5 10x3/uL (4.8-10.8)
--- NOTE | 2019-02-01 05:00 | NUR ---
SITTING UP IN CHAIR, DENIES NEEDS. CALL LIGHT WITHIN REACH. WILL CONTINUE TO MONITOR.
--- NOTE | 2019-02-01 07:30 | NUR ---
SHIFT REPORT RECEIVED. AA&OX4. DENIES PAIN AT THIS TIME BRUISING NOTED ON R-GROIN AND SCROTUM. ON ROOM AIR. ANGELA MIDLINE S.L. SITTING UP IN CHAIR. WALKS AROUND UNIT FREQUENTLY. SHIFT ASSESSMENT COMPLETED. VSS. NO FEVER. WILL CONTINUE TO MONITOR.
--- NOTE | 2019-02-01 08:25 | NUR ---
AMBULATED IN UNIT WITH HIS SPOUSE. AT END OF WALK PT FELT SLIGHT DIZZINESS. SITTING IN CHAIR AT THIS TIME. SBP IN 120S. HR SLIGHTLY TACHYCARDIC IN LOW 100S. WILL CONTINUE TO MONITOR.
--- NOTE | 2019-02-01 09:23 | NUR ---
Nutrition follow-up: Diet: Low sodium PO intake ~90% average of most meals Labs reviewed Wt: 202# +BM RDN following.
--- NOTE | 2019-02-01 14:07 | MORECARE ---
CASE MANAGEMENT DISCHARGE SUMMARY PATIENT: ELIANE BARRAGAN UNIT: [id number] ADM DATE: 01/29/19 AGE: 48 : 70 SEX: M ROOM/BED: [facility] AUTHOR: WILI BETTENCOURT PHYSICIAN: REFERRING PHYSICIAN: SONIA POWELL MD DATE OF SERVICE: 02/01/19 Discharge Plan Patient Name: ELIANE BARRAGAN Facility: [facility]:[place] : 1970 Planned Disposition: Home Anticipated Discharge Date: Discharge Date: Expected LOS: Initial Reviewer: [email or web address] Initial Review Date: 02/01/2019 Generated: 02/01/19 3:07 pm Patient Name: ELIANE BARRAGAN Page [phone] at 1407 All edits/amendments must be made on the electronic document DICTATION DATE: 02/01/19 1406 DOBBY LOOM WEAVER: MARIAH 02/01/19 1406 RPT#: [id number] DC DATE: STATUS: ADM IN [facility] [address] [place] [address] END OF REPORT
--- NOTE | 2019-02-01 14:12 | NUR ---
DR DOVER BY. OK TO TRANSFER TO FLOOR ON MED[facility].
--- NOTE | 2019-02-01 14:23 | MORECARE ---
CASE MANAGEMENT DISCHARGE SUMMARY PATIENT: ELIANE BARRAGAN UNIT: [id number] ADM DATE: 01/29/19 AGE: 48 : 70 SEX: M ROOM/BED: D.[facility] AUTHOR: RUT,DOC PHYSICIAN: REFERRING PHYSICIAN: SONIA POWELL MD DATE OF SERVICE: 02/01/19 Discharge Plan Patient Name: ELIANE BARRAGAN Facility: [facility]:[place] : 1970 Planned Disposition: Home Anticipated Discharge Date: Discharge Date: Expected LOS: Initial Reviewer: [email or web address] Initial Review Date: 02/01/2019 Generated: 02/01/19 3:23 pm Comments DCP- Discharge Planning Updated by [email or web address]: Estefanía Krishna on 02/01/19 1:[address] Patient Name: ELIANE BARRAGAN Admission Status: ER Accout number: [id number] Admission Date: 01-29-2019 : 1970 Admission Diagnosis:STEMI INVOLVING OTH CORONARY ARTERY OF INFERIOR WALL Attending: ELIANE POWELL Current LOS: 3 Anticipated DC Date: Planned Disposition: Home Primary Insurance: [employer] MANAGED MEDICAID Discharge Planning Comments: CM met with patient and spouse at bedside. Patient states he lives at home with is spouse (Carina). He plans on returning to their home upon discharge. He states he feels safe at his home. He states he will have family drive him home upon discharge. He denies any discharge needs at this time. CM will continue to follow and assist as needed with discharge planning / needs. Pepper Cutter: Estefanía Krishna DCPIA - Discharge Planning Initial Assessment Updated by [email or web address]: Estefanía Krishna on 02/01/19 2:15 pm * Is the patient Alert and Oriented? Yes * How many steps to enter\exit or inside your home? 3 OR RAMP * PCP [facility] [phone] ? ([place]) * Pharmacy [facility] * Preadmission Environment Home with Family * Other Equipment SHOWER CHAIR * List name and contact numbers for known caregivers / representatives who currently or will assist patient after discharge: CARINA BARRAGAN - SPOUSE- [phone] * Verbal permission to speak to the caregivers and representatives has been obtained from the patient. Yes * Community resources currently utilized None * Additional services required to return to the preadmission environment? No * Can the patient safely return to the preadmission environment? Yes * Has this patient been hospitalized within the prior 30 days at any hospital? No Last DP export: 02/01/19 1:07 p Patient Name: ELIANE BARRAGAN Page [id number] at 1423 All edits/amendments must be made on the electronic document DICTATION DATE: 02/01/191421 CLINICAL NURSING INTERN: DM 02/01/191421 RPT#: [id number] DC DATE: STATUS: ADM IN [facility] [address] [place] [address] END OF REPORT
--- NOTE | 2019-02-01 19:00 | NUR ---
TRANSFERRED TO ROOM 2117. REPORT CALLED TO RECEIVING NURSE. PERSONAL BELONGINGS SENT WITH PATIENT. SPOUSE AT BEDSIDE. CHART DELIVERED TO DIRECTOR OF FIELD COORDINATION.
--- NOTE | 2019-02-01 20:37 | NUR ---
PATIENT ARRIVED VIA WHEEL CHAIR FROM ICU. PATIENT IS ALERT AND ORIENTED. RESTING COMFORTABLY IN BED. RESPIRATIONS ARE EVEN AND UNLABORED. NO S/S OF DISTRESS. NO C/O PAIN. CALL LIGHT WITHIN REACH. WILL CPOC.
[2019-02-02 01:20] VITALS: BP 111/72
--- NOTE | 2019-02-02 02:53 | NUR ---
PATIENT RESTING COMFORTABLY IN BED. RESPIRATIONS ARE EVEN AND UNLABORED. NO S/S OF DISTRESS. CALL LIGHT WITHIN REACH. FAMILY AT BEDSIDE. WILL CPOC.
[2019-02-02 05:33] VITALS: BP 110/78
[2019-02-02 06:56] LABS: BASOPHILS 0.2 % (0-2); EOSINOPHILS 1.4 % (0-7); HEMATOCRIT 34.8 % (42.0-54.0); HEMOGLOBIN 11.6 g/dL (13.5-17.5); IMMATURE GRANULOCYTES 0.7 % (0-5); LYMPHOCYTES 19.2 % (15-50); MCH 29.4 pg (26.0-34.0); MCHC 33.3 g/dL (31.0-37.0); MCV 88.3 fL (80.0-100.0); MEAN PLATELET VOLUME 10.8 fL (7.4-10.4); NEUTROPHILS 70.5 % (40-80); RBC 3.94 10x6/uL (4.20-6.10); RDW 14.7 % (11.5-14.5); WBC 11.5 10x3/uL (4.8-10.8)
[2019-02-02 07:05] LABS: PLATELET COUNT 237 10x3/uL (130-400)
[2019-02-02 07:18] LABS: CALC OSMOLALITY 280 mosm/kg (275-300); CALCIUM 8.5 mg/dL (8.5-10.1); CHLORIDE - SERUM 103 mmol/L (98-107); GLUCOSE 148 mg/dL (74-106); POTASSIUM - SERUM 3.6 mmol/L (3.5-5.1); SODIUM 139 mmol/L (136-145); UREA NITROGEN 12 mg/dL (7-18); eGFR NON AFRICAN AMERICAN 85 mL/min (90-120)
[2019-02-02 08:00] VITALS: BP 139/92
[2019-02-02 11:40] VITALS: BP 132/77
[2019-02-02 11:49] LABS: APPEARANCE CLEAR (CLEAR); BILIRUBIN NEGATIVE (NEGATIVE); COLOR YELLOW (YELLOW); GLUCOSE NEGATIVE (NEGATIVE); KETONE NEGATIVE (NEGATIVE); NITRITE NEGATIVE (NEGATIVE); PROTEIN NEGATIVE (NEGATIVE)
[2019-02-02] MEDS ORDERED: PLAVIX75 MG PO (13:30)
[2019-02-02] MEDS ORDERED: HYDROCODON-ACE1 EA10 PO (13:31)
[2019-02-02] MEDS ORDERED: PRAVACHOL20 MG PO (13:33)
[2019-02-02] MEDS ORDERED: COREG 3.1253.125 MG PO (13:33)
[2019-02-02] MEDS ORDERED: BAYER CHEWABLE81 MG PO (13:34)
--- NOTE | 2019-02-02 15:40 | NUR ---
HARD SCRIPT PROVIDED FOR NORCO AND PLAVIX PER . COREG AND PRAVASTATIN CALLED IN. D/C PTS L.UPPER ARM MIDLINE WITH CATHETER TIP FULLY INTACT @13CM NO S/S OF SHEARING OR ISSUES NOTED. RETURNED TELEMETRY TO [facility]. ALL BELONGINGS COLLECTED AND PTS SPOUSE AT BEDSIDE FOR TRANSPORTATION. DISCHARGE TEACHING PROVIDED AND PAPERS SIGNED. PT VERBALIZED UNDERSTANDING AND DENIES ANY QUESTIONS OR CONCERNS.
--- NOTE | 2019-02-02 15:51 | MORECARE ---
CASE MANAGEMENT DISCHARGE SUMMARY PATIENT: ELIANE BARRAGAN UNIT: [id number] ADM DATE: 01/29/19 AGE: 48 : 70 SEX: M ROOM/BED: D.2118 AUTHOR: RUT,DOC PHYSICIAN: REFERRING PHYSICIAN: SONIA POWELL MD DATE OF SERVICE: 02/02/19 Discharge Plan Patient Name: ELIANE BARRAGAN Facility: [facility]:[place] : 1970 Planned Disposition: Home Anticipated Discharge Date: 02/02/19 Discharge Date: 02/02/2019 Expected LOS: 4 Initial Reviewer: [email or web address] Initial Review Date: 02/01/2019 Generated: 02/02/19 4:51 pm Comments DCP- Discharge Planning Updated by [email or web address]: Estefanía Krishna on 02/01/19 1:[address] Patient Name: ELIANE BARRAGAN Admission Status: ER Accout number: [id number] Admission Date: 01-29-2019 : 1970 Admission Diagnosis:STEMI INVOLVING OTH CORONARY ARTERY OF INFERIOR WALL Attending: ELIANE POWELL Current LOS: 3 Anticipated DC Date: Planned Disposition: Home Primary Insurance: [employer] MANAGED MEDICAID Discharge Planning Comments: CM met with patient and spouse at bedside. Patient states he lives at home with is spouse (Carina). He plans on returning to their home upon discharge. He states he feels safe at his home. He states he will have family drive him home upon discharge. He denies any discharge needs at this time. CM will continue to follow and assist as needed with discharge planning / needs. Audit Analyst: Estefanía Krishna DCPIA - Discharge Planning Initial Assessment Updated by [email or web address]: Estefanía Krishna on 02/01/19 2:15 pm * Is the patient Alert and Oriented? Yes * How many steps to enter\exit or inside your home? 3 OR RAMP * PCP [facility] [phone] ? ([place]) * Pharmacy [facility] * Preadmission Environment Home with Family * Other Equipment SHOWER CHAIR * List name and contact numbers for known caregivers / representatives who currently or will assist patient after discharge: CARINA BARRAGAN - SPOUSE- [phone] * Verbal permission to speak to the caregivers and representatives has been obtained from the patient. Yes * Community resources currently utilized None * Additional services required to return to the preadmission environment? No * Can the patient safely return to the preadmission environment? Yes * Has this patient been hospitalized within the prior 30 days at any hospital? No Last DP export: 02/01/19 1:23 p Patient Name: ELIANE BARRAGAN Page 00852 at 1551 All edits/amendments must be made on the electronic document DICTATION DATE: 02/02/191550 [employer] UNDERWRITER: MARIAH 02/02/191550 RPT#: [id number] DC DATE:02/02/19 STATUS: DIS IN [facility] [address] [place] [address] END OF REPORT
== END 2019-02-02 15:44 | disposition home or self-care (01) | DRG 248 ==
LOC: D.ER 02:23 → D.CVICU 02:48 → D.M2 02-01 19:08
PROVIDERS: Family Medicine; Internal Medicine Cardiovascular Disease; ADMIT Internal Medicine Interventional Cardiology; ATTEND Internal Medicine Interventional Cardiology
PROC: B2151ZZ Fluoroscopy of Left Heart using Low Osmolar Contrast (ICD-10-PCS; 2019-01-29)
PROC: 4A023N7 Measurement of Cardiac Sampling and Pressure, Left Heart, Percutaneous Approach (ICD-10-PCS; 2019-01-29)
PROC: 05HY33Z Insertion of Infusion Device into Upper Vein, Percutaneous Approach (ICD-10-PCS; 2019-01-29)
PROC: 02703DZ Dilation of Coronary Artery, One Artery with Intraluminal Device, Percutaneous Approach (ICD-10-PCS; principal; 2019-01-29 04:30)
PROC: B2111ZZ Fluoroscopy of Multiple Coronary Arteries using Low Osmolar Contrast (ICD-10-PCS; 2019-01-29 04:30)
DX: I21.19 ST elevation (STEMI) myocardial infarction involving other coronary artery of inferior wall (principal); K66.1 Hemoperitoneum; I25.10 Atherosclerotic heart disease of native coronary artery without angina pectoris; D64.9 Anemia, unspecified; R00.0 Tachycardia, unspecified

== ENCOUNTER 2019-02-03 09:26 | Observation (INO) | payer OTHER ==
[~2019-02-03] VITALS: Ht 180.3 cm; Wt 88.9 kg
[~2019-02-03 09:26] MED LIST: BAYER CHEWABLE81 MG PO; COREG 3.1253.125 MG PO; HYDROCODON-ACE1 EA10 PO; PLAVIX75 MG PO; PRAVACHOL20 MG PO
[2019-02-03 10:00] LABS: BASOPHILS 0.1 % (0-2); EOSINOPHILS 0.1 % (0-7); HEMATOCRIT 37.3 % (42.0-54.0); HEMOGLOBIN 12.8 g/dL (13.5-17.5); IMMATURE GRANULOCYTES 0.7 % (0-5); LYMPHOCYTES 10.5 % (15-50); MCH 30.1 pg (26.0-34.0); MCHC 34.3 g/dL (31.0-37.0); MCV 87.8 fL (80.0-100.0); NEUTROPHILS 80.6 % (40-80); PLATELET COUNT 262 10x3/uL (130-400); RBC 4.25 10x6/uL (4.20-6.10); RDW 14.5 % (11.5-14.5)
[2019-02-03 10:04] LABS: WBC 19.4 10x3/uL (4.8-10.8)
[2019-02-03 10:16] LABS: APTT 30.2 SECONDS (22.8-39.4); INR 1.14 (0.85-1.17); PROTIME 14.1 SECONDS (11.6-15.0)
[2019-02-03 10:30] LABS: ALBUMIN 3.1 g/dL (3.4-5.0); ALKALINE PHOSPHATASE 60 U/L (46-116); ALT (SGPT) 33 U/L (10-68); BILIRUBIN - TOTAL 2.41 mg/dL (0.2-1.3); CALC OSMOLALITY 272 mosm/kg (275-300); CALCIUM 8.5 mg/dL (8.5-10.1); CARBON DIOXIDE 22.1 mmol/L (21.0-32.0); CHLORIDE - SERUM 100 mmol/L (98-107); CREATININE - SERUM 0.9 mg/dL (0.6-1.3); GLUCOSE 130 mg/dL (74-106); POTASSIUM - SERUM 3.9 mmol/L (3.5-5.1); PROTEIN - SERUM 7.1 g/dL (6.4-8.2); SODIUM 135 mmol/L (136-145); UREA NITROGEN 14 mg/dL (7-18); eGFR NON AFRICAN AMERICAN > 90 mL/min (90-120)
--- NOTE | 2019-02-03 10:50 | NUR ---
LAB REPORTED TROPONIN 3.210, EDP NOTIFIED.
[2019-02-03 10:51] LABS: CKMB 0.5 U/L (0.0-3.6); CREATINE KINASE 146 UL (21-232)
[2019-02-03 12:04] VITALS: BP 111/78
--- NOTE | 2019-02-03 12:20 | NUR ---
PT RESTING IN BED. STATES HE HAS NO PAIN IN HIS ABD LONG HE IS BEING STILL. STATES IF HE MOVES HIS PAIN IS A 5/10.
--- NOTE | 2019-02-03 13:51 | NUR ---
TRANSFER FROM ER BY STRETCHER. OREINTED TO ROOM. CALL LIGHT IN REACH. WILL CONT. PLAN OF CARE.
[2019-02-03 14:59] VITALS: BMI 27.4
[2019-02-03 15:30] VITALS: BP 120/80
[2019-02-03 17:20] LABS: APPEARANCE CLEAR (CLEAR); COLOR DK YELLOW (YELLOW)
[2019-02-03 17:21] LABS: BILIRUBIN NEGATIVE (NEGATIVE); GLUCOSE NEGATIVE (NEGATIVE); KETONE NEGATIVE (NEGATIVE); NITRITE NEGATIVE (NEGATIVE); PROTEIN NEGATIVE (NEGATIVE); UROBILINOGEN NORMAL (NORMAL)
--- NOTE | 2019-02-03 17:23 | NUR ---
WITHOUT CHANGES OR DISTRESS NOTED AT THIS TIME. DENIES NEEDS.
[2019-02-03 17:25] LABS: MUCUS <1+ /lpf (NONE SEEN); RED CELLS - URINE OCC /hpf (0-5); WHITE CELLS - URINE 0-5 /hpf (0-5)
--- NOTE | 2019-02-03 19:58 | NUR ---
RESUMING PATIENT CARE. PATIENT IS ALERT AND ORIENTED. RESTING COMFORTABLY IN BED. RESPIRATIONS ARE EVEN AND UNLABORED. NO S/S OF DISTRESS. NO C/O PAIN. AT BEDSIDE. CALL LIGHT WITHIN REACH. WILL CPOC.
[2019-02-03 20:00] VITALS: BP 120/72
[2019-02-04] VITALS: BP 109/68
[2019-02-04 04:00] VITALS: BP 125/73
[2019-02-04 05:36] LABS: BASOPHILS 0.2 % (0-2); EOSINOPHILS 0.6 % (0-7); HEMATOCRIT 36.2 % (42.0-54.0); HEMOGLOBIN 12.3 g/dL (13.5-17.5); IMMATURE GRANULOCYTES 0.6 % (0-5); LYMPHOCYTES 6.8 % (15-50); MCH 29.8 pg (26.0-34.0); MCV 87.7 fL (80.0-100.0); MEAN PLATELET VOLUME 10.5 fL (7.4-10.4); MONOCYTES 8.8 % (2-11); PLATELET COUNT 262 10x3/uL (130-400); RBC 4.13 10x6/uL (4.20-6.10); RDW 14.5 % (11.5-14.5); WBC 19.8 10x3/uL (4.8-10.8)
[2019-02-04 06:06] LABS: ALBUMIN 2.9 g/dL (3.4-5.0); ALKALINE PHOSPHATASE 58 U/L (46-116); ALT (SGPT) 26 U/L (10-68); BILIRUBIN - TOTAL 2.05 mg/dL (0.2-1.3); CALCIUM 8.3 mg/dL (8.5-10.1); CARBON DIOXIDE 26.5 mmol/L (21.0-32.0); CHLORIDE - SERUM 96 mmol/L (98-107); CREATININE - SERUM 1.1 mg/dL (0.6-1.3); GLUCOSE 134 mg/dL (74-106); POTASSIUM - SERUM 4.1 mmol/L (3.5-5.1); PROTEIN - SERUM 7.1 g/dL (6.4-8.2); SODIUM 131 mmol/L (136-145); eGFR NON AFRICAN AMERICAN 76 mL/min (90-120)
[2019-02-04 06:09] LABS: CALC OSMOLALITY 266 mosm/kg (275-300); MAGNESIUM - SERUM 2.6 mg/dL (1.8-2.4); UREA NITROGEN 19 mg/dL (7-18)
--- NOTE | 2019-02-04 09:07 | NUR ---
TELEMETRY SR. UP AMBULATING WITH . WILL CONT. PLAN OF CARE.
[2019-02-04 09:19] VITALS: BP 110/70
[2019-02-04 13:09] VITALS: Ht 180.3 cm; Wt 88.9 kg
--- NOTE | 2019-02-04 15:22 | NUR ---
AMBULATES HALLWAY. REFUSES SCDS.
[2019-02-04] MEDS ORDERED: COLACE100 MG PO (17:26)
[2019-02-04] MEDS ORDERED: OMNICEF300 MG PO (17:28)
[2019-02-04] MEDS ORDERED: FLORAJEN3 CAPS460 MG PO (17:28)
[2019-02-04] MEDS ORDERED: ZITHROMAX500 MG PO (17:28)
--- NOTE | 2019-02-04 17:53 | NUR ---
IV AND TELEMETRY DCD. DC PLANS GIVEN. UNDERSTANDING VOICED. ESCORTED TO CAR BY W/C.
--- NOTE | 2019-02-05 07:41 | MORECARE ---
CASE MANAGEMENT DISCHARGE SUMMARY PATIENT: ELIANE BARRAGAN UNIT: [id number] ADM DATE: 02/03/19 AGE: 48 : 70 SEX: M ROOM/BED: D.2115 AUTHOR: WILI BETTENCOURT PHYSICIAN: REFERRING PHYSICIAN: JUAN SHULTZ MD DATE OF SERVICE: 02/05/19 Discharge Plan Patient Name: ELIANE BARRAGAN Facility: [facility]:[place] : 1970 Planned Disposition: Home Anticipated Discharge Date: 02/04/19 Discharge Date: 02/04/2019 Expected LOS: 1 Initial Reviewer: [email or web address] Initial Review Date: 02/05/2019 Generated: 02/05/19 8:41 am Patient Name: ELIANE BARRAGAN Page [phone] at 0741 All edits/amendments must be made on the electronic document DICTATION DATE: 02/05/19740 INTELLECTUAL PROPERTY PARALEGAL: MARIAH 02/05/19740 RPT#: [id number] DC DATE:02/04/19 STATUS: DIS IN [facility] [address] [place] [address] END OF REPORT
== END 2019-02-04 17:54 | disposition home or self-care (01) ==
LOC: D.ER 09:26 → D.M2 12:55 → OBSVTIME 12:56 → D.M2 02-04 17:54
PROVIDERS: Emergency Medicine; Family Medicine; ADMIT Emergency Medicine; ATTEND Emergency Medicine
DX: R00.0 Tachycardia, unspecified (principal); I21.9 Acute myocardial infarction, unspecified; I25.10 Atherosclerotic heart disease of native coronary artery without angina pectoris; R10.9 Unspecified abdominal pain; E78.5 Hyperlipidemia, unspecified; Z87.891 Personal history of nicotine dependence

== ENCOUNTER 2019-02-26 09:06 | Outpatient (CLI) | payer OTHER ==
[~2019-02-26] VITALS: Ht 180.3 cm; Wt 90.9 kg
--- NOTE | ~2019-02-26 | HEMODYNAMI ---
PATIENT:ELIANE BARRAGAN ARGUELLES MEDICAL RECORD: [id number] : 70 LOCATION:[facility] ADMISSION DATE: 02/26/19 Generatedon:02/26/201913:34 Patient name: ELIANE BARRAGAN Patient #: [id number] SSN: : 1970 Date of study: 02/26/2019 Page: Of Hemodynamic Procedure Report Patient Data Patient Demographics Procedure consent was obtained First Name: ELIANE Gender: Male Last Name: YUNG : 1970 [facility] Initial: ARGUELLES Age: 48 year(s) Patient #: [id number] Race: Unknown Additional ID: [id number] Contact details [address]: [address] [place] [address] State: [place] City: [place] Zip code: [address] Past Medical History Allergies: No known allergies Admission Admission Data Admission Date: 02/26/2019 Admission Time: 9:06 Height (in.): 70.87 BSA: 2.1 (m2) Height (cm.): 180 BMI: 27.78 (kg/m2) Weight (lbs.): 198.42 Weight (kg.): 90 Lab Results Lab Result Date: 02/26/2019 Lab Result Time: 0:00 Biochemistry Name Units Result Min Max BUN mg/dl 12 --(-*--)-- 7 18 Creatinine mg/dl 1 --(--*-)-- 0.6 1.3 CBC Name Units Result Min Max Hemoglobin g/dl 16.4 --(--*-)-- 13.5 17.5 Procedure Procedure Types Cath Procedure Diagnostic Procedure Sedation Charges Moderate Sedation up to 15 minutes PCI Procedure Coronary Stent Coronary Stent Initial Procedure Description Procedure Date Procedure Date: 02/26/2019 Procedure Start Time: 13:17 Procedure End Time: 13:30 Procedure Staff Name Function Omero Bray MD Performing Physician Zina Taylor RT Monitor Edwin Hansen RN Nurse Mimi Barahona RT Scrub Procedure Data Cath Procedure Fluoroscopy Diagnostic fluoroscopy Total fluoroscopy Time: 6.1 time: 6.1 min min Diagnostic fluoroscopy Total fluoroscopy dose: 311 dose: 311 mGy mGy Contrast Material Contrast Material Type Amount (ml) Isovue 300 119 Entry Location Entry Primary Successful Side Size Upsize Upsize Entry Closure Succes sful Closure Location (Fr) 1 (Fr) 2 (Fr) Remarks Device Remarks Femoral Right 6 Fr Exoseal artery Short Estimated blood loss: 10 ml Procedure Complications No complications Procedure Medications Medication Administration Route Dosage Oxygen etCO2 Nasal cannula 2 l/min Lidocaine 2% added to field 20 Heparin Flush Bag added to field 2 bags (1000units/500ml NS) 0.9% NaCl I.V. 100 ml/hr Versed I.V. 2 mg Fentanyl I.V. 100 mcg Versed I.V. 2 mg Fentanyl I.V. 100 mcg Heparin Bolus I.V. 4000 units Versed I.V. 2 mg Fentanyl I.V. 100 mcg Versed I.V. 2 mg Hemodynamics Rest BSA: 2.1 (m2) HGB: 16.4 (g/dl) O2 Consumption: Estimated: 253.44 (ml/min) O2 Con sumption indexed: Estimated:120.69 (ml/min/m) Heart Rate: 72 (bpm) Snapshots Pre Cath Intra NCS Post Cath Vital Signs Time Heart Resp SPO2 etCO2 NIBP (mmHg) Rhythm Pain Sedation Rate (ipm) (%) (mmHg) Status Level (bpm) 12:56:13 75 12 95 0 130/84(96) NSR 0 (11) 10(A) , No pain 13:00:39 73 16 98 0 118/75(103) NSR 0 (11) 10(A) , No pain 13:04:57 75 13 96 0 119/85(100) NSR 0 (11) 10(A) , No pain 13:09:16 77 23 95 0 103/87(98) NSR 0 (11) 10(A) , No pain 13:13:29 70 15 94 0 115/76(98) NSR 0 (11) 10(A) , No pain 13:17:48 79 13 96 0 125/78(97) NSR 0 (11) 10(A) , No pain 13:22:22 73 20 95 0 118/65(94) NSR 0 (11) 10(A) , No pain 13:26:40 88 12 98 0 123/87(101) NSR 0 (11) 10(A) , No pain 13:31:00 88 19 96 0 118/87(99) NSR 0 (11) 10(A) , No pain Medications Time Medication Route Dose Verified Delivered Reason Notes Effectiveness by by 12:45:28 Oxygen etCO2 2 Omero Joseie used for Nasal l/min Katarina Hansen RN procedure cannula 12:45:34 Lidocaine 2% added 20ml Omero Jamil for local to vial Katarina Bray MD anesthetic field 12:45:40 Heparin Flush added 2 Omero Omero used for Bag to bags Katarina Bray MD procedure (1000units/500ml field NS) 12:45:50 0.9% NaCl I.V. 100 Omero Buffie Per physician ml/hr Katarina Hansen RN 13:10:50 Versed I.V. 2 mg Omero Joseie for sedation Katarina Hansen RN 13:10:56 Fentanyl I.V. 100 Omero Buffie for sedation mcg Katarina Hansen RN 13:13:28 Versed I.V. 2 mg Omero Buffie for sedation Katarina Hansen RN 13:13:32 Fentanyl I.V. 100 Omero Buffie for sedation mcg Katarina Hansen RN 13:16:11 Heparin Bolus I.V. 4000 Omero Buffie for verif ied units Katarina Hansen RN anticoagulation with dr bray 13:18:23 Versed I.V. 2 mg Omero Buffie for sedation Katarina Hansen RN 13:18:27 Fentanyl I.V. 100 Omero Buffie for sedation mcg Katarina Hansen RN 13:23:12 Versed I.V. 2 mg Omero Buffie for sedation Katarina Hansen RN Procedure Log Time Note 12:31:48 Patient Height : 70.87 inches 12:31:58 Patient Weight : 198.42 lbs 12:32:21 Lab Result : Creatinine 1 mg/dl 12:32:21 Lab Result : BUN 12 mg/dl 12:32:21 Lab Result : Hemoglobin 16.4 g/dl 12:45:28 Oxygen 2 l/min etCO2 Nasal cannula was administered by Edwin Hansen RN; used for procedure; 12:45:34 Lidocaine 2% 20ml vial added to field was administered by Omero Bray MD; for local anesthetic; 12:45:40 Heparin Flush Bag (1000units/500ml NS) 2 bags added to field was administered by Omero Bray MD; used for procedure; 12:45:50 0.9% NaCl 100 ml/hr I.V. was administered by Edwin Hansen RN; Per physician; 12:47:20 Time tracking: Regular hours (M-F 7:00 - 5:00) 12:47:24 Plan of Care:Hemodynamics will remain stable., Cardiac rhythm will remain stable., Comfort level will be maintained., Respiratory function will remain adequate., Patient/ family verbilizes understanding of procedure., Procedure tolerated without complication., Recovers from procedure without complications.. 12:48:05 Zina Taylor RT(R) sent for patient. Start room use. 12:49:00 Patient received from Pre/Post Procedure Room to CCL 3 Alert and oriented. Tansferred to table in Supine position. 12:49:01 Warm blankets applied, and bk hugger turned on for patient comfort. 12:49:01 Correct patient and procedure confirmed by team. 12:49:03 Signed procedure consent form obtained from patient. 12:49:03 ECG and BP/O2 sat monitors applied to patient. 12:49:04 Full Disclosure recording started 12:54:58 Vital chart was started 13:02:06 Baseline sample Acquired. 13:02:12 Rhythm: sinus rhythm 13:02:19 H&P Date Dictated: 02/26/2019 Within 30 days and on chart., H&P Addendum completed by physician on day of procedure. (MUST COMPLETE FOR ALL OUTPATIENTS). 13:02:21 Pre-procedure instructions explained to patient. 13:02:30 Family in waiting room. 13:02:34 Patient NPO since Midnight. 13:02:43 Patient allergic to No known allergies 13:02:46 Is the patient allergic to Iodine/contrast media? No. 13:02:48 Was the patient premedicated? Yes 13:02:50 Patient diabetic? No. 13:02:58 Snore? Yes 13:03:00 Sleep apnea? No 13:03:01 Deviated septum? No 13:03:08 Dentures? No ? 13:04:21 Pre procedure: right dorsailis pedis pulse 1+ Palpable, but thready & weak; easily obliterated 13:04:24 Pre procedure: right posterior tibial pulse 1+ Palpable, but thready & weak; easily obliterated 13:04:35 IV patent on arrival in right wrist with 0.9% NaCl at KVO. 13:04:39 Lab results completed and on chart. 13:04:44 Right groin area was prepped with chlora-prep and draped in sterile fashion 13:04:45 Alarms reviewed by R. N. 13:04:45 Sharps counted by scrub and verified by R.N. 13:04:47 Physician paged 13:07:44 Use device set Femoral Dx 13:07:47 ACIST Syringe (79424) opened to sterile field. 13:07:48 Bag Decanter (2002S) opened to sterile field. 13:07:49 Medline Cath Pack ([id number]) opened to sterile field. 13:07:49 DIAGNOSTIC WIRE .035 260cm J wire ([id number]) opened to sterile field. 13:07:50 ACIST Hand Control (20012) opened to sterile field. 13:07:52 ACIST Manifold (26863) opened to sterile field. 13:07:55 Tegaderm 4 x 4 (1626W) opened to sterile field. 13:10:16 Physician arrived 13:10:16 --------ALL STOP TIME OUT------ 13:10:17 Final Timeout: patient, procedure, and site verified with staff and physician. All members of the team are in agreement. 13:10:19 Right groin site verified by team. 13:10:24 Maximum allowable Isovue 300 dose 300ml. Physician notified. (300ml for normal creatinines. For patients with creatinine of 1.7 or higher multiply weight(kg) x 5 divided by creatinine.) 13:10:28 Fire Safety Assessment: A--An alcohol-based skin anteseptic being used preoperatively., C--Open oxygen or nitrous oxide is being used., D--An ESU, laser, or fiber-optic light is being used. 13:10:35 Physical assessment completed. ASA score P 2 - A patient with mild systemic disease as per Omero Bray MD. 13:10:39 Sedation plan: IV Moderate Sedation Medication:Versed, Fentanyl 13:10:50 Versed 2 mg I.V. was administered by Edwin Hansen RN; for sedation; 13:10:56 Fentanyl 100 mcg I.V. was administered by Edwin Hansen RN; for sedation; 13:13:28 Versed 2 mg I.V. was administered by Edwin Hansen RN; for sedation; 13:13:32 Fentanyl 100 mcg I.V. was administered by Edwin Hansen RN; for sedation; 13:16:11 Heparin Bolus 4000 units I.V. was administered by Edwin Hansen RN; for anticoagulation; verified with dr bray 13:16:26 Procedure started. 13:17:58 Local anesthetic to right femoral artery with Lidocaine 2% by Omero Bray MD.INITIAL ACCESS ONLY 13:18:08 A 6 Fr Short sheath was inserted into the Right Femoral artery 13:18:23 Versed 2 mg I.V. was administered by Edwin Hansen RN; for sedation; 13:18:27 Fentanyl 100 mcg I.V. was administered by Edwin Hansen RN; for sedation; 13:18:46 6 Fr XBLAD3.5 guide catheter was inserted over the wire 13:18:57 GUIDE 6FR XBLAD 3.5 catheter ([id number]) opened to sterile field. 13:18:58 CHOICE PT Extra Support 182cm wire ([id number]) opened to sterile field. 13:18:59 INFLATOR Merit BasixCompak ([id number]) opened to sterile field. 13:19:00 SHEATH 6FR [place] (UWY712) opened to sterile field. 13:19:04 Wire advanced across lesion. 13:21:05 choice pt wire advanced. 13:22:11 Place stent Inflation Number: 1 A MELI RX 2.25 x 38 stent ([id number]) was prepped and advanced across the Mid LAD. The stent was deployed at 17 ELLEN for 0:14 (min:sec). 13:23:01 Stent catheter was removed intact over wire. 13:23:12 Versed 2 mg I.V. was administered by Edwin Hansen RN; for sedation; 13:23:52 Place stent Inflation Number: 1 A MELI RX 3.0 x 30 stent ([id number]) was prepped and advanced across the Prox LAD. The stent was deployed at 13 ELLEN for 0:11 (min:sec). 13:24:21 Stent catheter was removed intact over wire. 13:27:44 Wire removed. 13::45 Guide catheter removed. 13:28:00 Sheath removed intact; hemostasis achieved with Exoseal to the Right Femoral artery. 13:28:04 Procedure ended.(Physican Out) :: Fluoroscopy time 06.10 minutes. :: Fluoroscopy dose: 311 mGy 13:: Flurop Dose total: 311 13::59 Contrast amount:Isovue 300 119ml. 13:29:01 Sharps counted by scrub and verified by R.N. 13:29:05 Insertion/operative site no bleeding no hematoma. 13:29:08 Post-op/insertion site Right Femoral artery dressed using a 4 x 4 and Tegaderm. 13:29:10 Post Procedure Pulses reassessed and unchanged 13::15 Post-procedure physical assessment completed. ASA score P 2 - A patient with mild systemic disease as per Omero Bray MD. 13:29:18 Post procedure rhythm: unchanged. 13::23 Estimated blood loss: 10 ml 13::26 Post procedure instruction explained to patient.Patient verbalizes understanding. 13:29:35 Patient needs reinforcement of post procedure teaching. 13:29:48 Procedure type changed to Cath procedure, Diagnostic procedure, Sedation Charges, Moderate Sedation up to 15 minutes, PCI procedure, Coronary Stent, Coronary Stent Initial 13:29:50 Procedure and supply charges have been captured, reviewed, submitted and are correct. 13:30:22 Procedure Complication : No complications 13:30:26 Vital chart was stopped 13::26 See physician's report for complete and final results. 13:30:30 Patient transfered to Pre/Post Procedure Room with Stretcher. 13:30:34 Procedure ended. 13:30:34 Full Disclosure recording stopped 13:30:37 End room use (Document Last) 13:30:51 ACC-PCI Only Patient was given prescriptions, or instructed by Omero Bray MD to start/continue the following medications upon discharge: Plavix Intervention Summary Intervention Notes Time ActionType Lesion and Equipment Used Action# Pressure Duration Attributes 13:22:11 Place stent Mid LAD MELI RX 2.25 x 1 17 00:14 38 stent ([id number]) 13:23:52 Place stent Prox LAD MELI RX 3.0 x 1 13 00:12 30 stent ([id number]) Device Usage Item Name Manufacture Quantity Catalog Number [facility] Part Current M inimal Lot# / Charge Number Stock Stock Serial# Code ACIST Syringe Acist 1 61547 513192 799562 507998 2 0 (19213) Medical Systems Inc Bag Decanter Microtek 1 306126 79408 646889 5 () Medical Inc. Medline Cath Medline 1 [id number] 704963 44454 813389 5 Pack ([id number]) DIAGNOSTIC St Octavio 1 397249 839344 908924 920984 3 0 WIRE .035 260cm J wire (620107) ACIST Hand Acist 1 55801 508168 548145 431985 5 Control Medical (94918) Systems Inc ACIST Manifold Acist 1 03576 999504 750068 713456 5 (86921) Medical Systems Inc Tegaderm 4 x 4 3M 1 1626W 649442 148698 750204 5 (1626W) GUIDE 6FR Cardinal 1 [id number] 244626 637470 030135 1 0 XBLAD 3.5 Health catheter ([id number]) CHOICE PT Milo 1 [id number] 734043 973271 650679 5 Extra Support Scientific 182cm wire ([id number]) INFLATOR Merit Merit 1 [id number] 453239 046546 952957 1 5 Availink (GO4698) SHEATH 6FR Terumo 1 [id number] 051149 184082 385304 4 0 [place] (GQF254) MELI RX 2.25 x Medtronic 1 [id number] 346158 3246291 650501 5 [id number] 38 stent ([id number]) MELI RX 3.0 x Medtronic 1 [id number] 090140 1823439 362435 5 [id number] 30 stent ([id number]) Signature Audit Speculator Stage Time Signature Unsigned Intra-Procedure 02/26/2019 Zina Taylor 1:33:54 PM RT(R) Signatures Monitor : Zina Taylor Signature : RT Date : Time : [facility] [address] [place] [address]
[~2019-02-26 09:06] MED LIST changes: +COLACE100 MG PO; +FLORAJEN3 CAPS460 MG PO; +OMNICEF300 MG PO; +ZITHROMAX500 MG PO
[2019-02-26 09:24] VITALS: BP 125/89; Ht 180.3 cm; Wt 90.9 kg
[2019-02-26 09:47] LABS: BASOPHILS 0.7 % (0-2); EOSINOPHILS 2.7 % (0-7); HEMATOCRIT 49.1 % (42.0-54.0); HEMOGLOBIN 16.4 g/dL (13.5-17.5); IMMATURE GRANULOCYTES 0.7 % (0-5); LYMPHOCYTES 32.3 % (15-50); MCH 30.1 pg (26.0-34.0); MCHC 33.4 g/dL (31.0-37.0); MCV 90.1 fL (80.0-100.0); MEAN PLATELET VOLUME 10.4 fL (7.4-10.4); MONOCYTES 7.1 % (2-11); NEUTROPHILS 56.5 % (40-80); PLATELET COUNT 309 10x3/uL (130-400); RBC 5.45 10x6/uL (4.20-6.10); WBC 8.4 10x3/uL (4.8-10.8)
[2019-02-26 09:52] LABS: CALC OSMOLALITY 281 mosm/kg (275-300); CALCIUM 9.2 mg/dL (8.5-10.1); CARBON DIOXIDE 28.7 mmol/L (21.0-32.0); CHLORIDE - SERUM 104 mmol/L (98-107); GLUCOSE 114 mg/dL (74-106); POTASSIUM - SERUM 4.6 mmol/L (3.5-5.1); SODIUM 141 mmol/L (136-145); UREA NITROGEN 12 mg/dL (7-18); eGFR NON AFRICAN AMERICAN 85 mL/min (90-120)
--- NOTE | 2019-02-26 13:45 | NUR ---
PT RECEIVED VIA STRETCHER FROM SECURITY OFFICER SUPERVISOR FOR RECOVERY. PT AWAKE, SLIGHTLY DROWSY. PT DENIES CHEST PAIN OR DISCOMFORT. 6 FR EXOCELE TO R GROIN, DRESSING CDI NO BLEEDING OR HEMATOMA NOTED. R LEG PINK AND WARM, PEDAL PULSES PALPABLE. HR NSR RATE 81, B/P 114/67, 02 SAT 98 ON 2L O2 VIA NC. PT INSTRUCTED TO KEEP HEAD FLAT ON PILLOW AND R LEG STRAIGHT, HE VERBALIZED UNDERSTANDING. PT REQUESTED ICE CHIPS, GIVEN. CALL LIGHT IN REACH
--- NOTE | 2019-02-26 14:12 | NUR ---
PT RESTING COMFORTABLY, DENIES PAIN OR DISCOMFORT. R GROIN SOFT, DRESSING CDI NO BLEEDING OR SWELLING NOTED. PEDAL PULSES PALPABLE. PT REQUEST PUDDING AND SPRITE, GIVEN. CALL LIGHT IN REACH AND AT BEDSIDE.
--- NOTE | 2019-02-26 15:00 | NUR ---
PT AWAKE, DENIES PAIN OR DISCOMFORT. R GROIN SOFT, DRESSING CDI NO BLEEDING OR HEMATOMA NOTED. VSS. CALL LIGHT IN REACH.
--- NOTE | 2019-02-26 15:13 | OP ---
PATIENT NAME: ELIANE BARRAGAN MEDICAL RECORD: [id number] :[birth year] LOCATION:D.CAT ADMISSION DATE: SURGEON: SONIA POWELL MD DATE OF OPERATION: 02/26/2019 PROCEDURES: 1. PTCA stent LAD. 2. Selective coronary angiography. INDICATION: Angina and coronary artery disease. PROCEDURE IN DETAIL: After informed consent was obtained and after a detailed description of risks, benefits as well as alternative therapies, the patient elected to proceed with angiogram and angioplasty. The right femoral area was prepped and draped in normal sterile fashion. Right femoral artery was cannulated via modified Seldinger technique with placement of 6-Irish sheath. All catheters exchanged through this sheath. FINDINGS: Left anterior descending had 95% stenosis proximally followed by a long area of multiple 80% stenosis. This was addressed with a 2.25 x 38 and 3.0 x 30, both [place] stents. Result was 0% residual stenosis. OVERALL IMPRESSION: Successful percutaneous transluminal coronary angioplasty stent of the left anterior descending going from 95% initial stenosis. The circumflex was reevaluated. What initially appeared to be 80%, did not appear to be flow limiting at this time and the circumflex was not intervened. TRANSINT:[id number] Voice Confirmation ID: [id number] DOCUMENT ID: [id number] SONIA POWELL MD at 1513 CC: [id number] DICTATION DATE: 02/26/19 1331 MURAL PAINTER: 02/26/19 1402 [facility] [address] [place] [address]
--- NOTE | 2019-02-26 15:13 | HP ---
PATIENT: ELIANE QUIJANO SABINA MEDICAL RECORD: [id number] ACCOUNT: [id number] LOCATION:[place] : [birth year] ADMISSION DATE: 02/26/19 PCP: SWETA MCHUGH HISTORY AND PHYSICAL EXAMINATION DATE OF SERVICE: 02/26/2019 ADMITTING DIAGNOSES: 1. Angina. 2. Coronary artery disease. 3. Recent percutaneous transluminal coronary angioplasty stent of the right coronary artery with concomitant disease left anterior descending and circumflex. 4. Hypertension. 5. Hyperlipidemia. HISTORY OF PRESENT ILLNESS: Mr. Quijano presents with anginal symptomatology, found to have severe 3-vessel coronary artery disease, underwent successful PTCA stent of the RCA. He is now brought back for PTCA stent of the LAD and circumflex. PHYSICAL EXAMINATION: GENERAL APPEARANCE: Well-nourished, well-developed, appears stated age. Level of distress, comfortable. PSYCHIATRIC: Mental status, alert, normal affect. Orientation, oriented to time, place and person. EYES: Lids and conjunctiva, noninjected. No discharge, no pallor. ENT: Lips, teeth, gums, normal dentition. Oropharynx, no cyanosis, no pallor. NECK: Carotid arteries, bilateral normal upstroke, no bruits, no thrills. JUGULAR VEINS: No jugular venous pressure or distention. CERVICAL LYMPH NODES: Nontender, nonenlarged. THYROID: Not enlarged. Nontender. No nodules. LUNGS: Respiratory effort, unlabored. CHEST: Normal curvature. No thoracic deformity. No chest wall tenderness. Percussion, resonant. Auscultation, clear. No wheezes, no rales, no rhonchi. CARDIOVASCULAR: Precordial exam, nondisplaced. No heaves or pericardial thrills. Rate and rhythm, regular. Heart sounds, normal S1, normal S2. No S3, no gallop, no rub. Systolic murmur, not heard. Diastolic murmur, not heard. EXTREMITIES: No cyanosis, no edema. Peripheral pulses, full and equal in all extremities, except as noted. No bruits appreciated. ABDOMEN: Soft, nondistended. Normal aorta. No bruit. Nontender. No masses. Liver, nontender, no hepatomegaly. Spleen, nontender, no splenomegaly. MUSCULOSKELETAL: No joint tenderness. No joint swelling. No erythema. NEUROLOGICAL: Normal gait, normal strength, normal tone. SKIN: Warm and dry. OVERALL IMPRESSION: Anginal symptomatology with significant disease of the left anterior descending and circumflex. We will proceed with transcatheter revascularization of the left anterior descending and circumflex. TRANSINT:[id number] Voice Confirmation ID: [id number] DOCUMENT ID: [id number] HISTORY AND PHYSICAL [id number] ELIANE QUIJANO JEFFREY MD at 1513 CC: [id number] DICTATION DATE: 02/26/19 0951 TASSEL MAKING MACHINE OPERATOR: 02/26/19 1053 [facility] [address] [place] [address]
--- NOTE | 2019-02-26 15:34 | NUR ---
PT AWAKE VISITING WITH , GROIN REMAINS SOFT NO BLEEDING OR SWELLING NOTED. PEDAL PULSES PALPABLE, VSS. DENIES NEEDS AT THIS TIME.
--- NOTE | 2019-02-26 16:03 | NUR ---
PT STILL DOING WELL, GROIN REMAINS SOFT, NO BLEEDING OR HEMATOMA NOTED. VSS, PT DENIES NEEDS. AT BEDSIDE AND CALL LIGHT IN REACH
--- NOTE | 2019-02-26 16:30 | NUR ---
HOB ELEVATED SLIGHTLY. GROIN DRESSING REMAINS CDI NO BLEEDING OR HEMATOMA NOTED. SANDWICH SERVED. VSS. CALL LIGHT IN REACH
--- NOTE | 2019-02-26 17:08 | NUR ---
DISCHARGE INSTRUCTIONS REVIEWED W PT AND , BOTH VERBALIZED UNDERSTANDING.
--- NOTE | 2019-02-26 17:13 | NUR ---
IV REMOVED W CATH INTACT, MONITORS REMOVED AND PT UP TO DRESS FOR DISCHARGE.
--- NOTE | 2019-02-26 17:25 | NUR ---
PT DISCHARGED VIA WC TO PRIVATE VEHICLE WITH ALL BELONGINGS.
== END 2019-02-26 17:25 | disposition home or self-care (01) ==
LOC: D.CATH 09:06
PROVIDERS: ATTEND Internal Medicine Interventional Cardiology
DX: I25.119 Atherosclerotic heart disease of native coronary artery with unspecified angina pectoris (principal); Z95.5 Presence of coronary angioplasty implant and graft; I10 Essential (primary) hypertension; E78.00 Pure hypercholesterolemia, unspecified; Z01.812 Encounter for preprocedural laboratory examination

== ENCOUNTER 2019-03-25 23:07 | Observation (INO) | payer OTHER ==
[~2019-03-25] VITALS: Ht 180.3 cm; Wt 90.7 kg
--- NOTE | ~2019-03-25 | HEMODYNAMI ---
PATIENT:ELIANE BARRAGAN ARGUELLES MEDICAL RECORD: [id number] : 70 [facility] ADMISSION DATE: 03/26/19 Generatedon:03/26/201913:29 Patient name: ELIANE BARRAGAN Patient #: [id number] SSN: : 1970 Date of study: 03/26/2019 Page: Of Hemodynamic Procedure Report Patient Data Patient Demographics Procedure consent was obtained First Name: ELIANE Gender: Male Last Name: YUNG : 1970 [facility] Initial: ARGUELLES Age: 48 year(s) Patient #: [id number] Race: Unknown Additional ID: [id number] Contact details [address]: [address] [place] [address] State: [place] City: [place] Zip code: [address] Past Medical History Allergies: No known allergies Admission Admission Data Admission Date: 03/26/2019 Admission Time: 1:13 Admit Source: Emergency department Room #: D.2120 Procedure Procedure Types Cath Procedure Diagnostic Procedure LHC LHC w/Coronaries FFR/IVUS FFR Initial Sedation Charges Moderate Sedation up to 15 minutes Procedure Description Procedure Date Procedure Date: 03/26/2019 Procedure Start Time: 13:07 Procedure End Time: 13:28 Procedure Staff Name Function Omero Bray MD Performing Physician Javier Ventura RT Monitor Eulalio Wyatt RT Scrub Kit Barney RN Nurse Procedure Data Cath Procedure Fluoroscopy Diagnostic fluoroscopy Total fluoroscopy Time: 7.6 time: 7.6 min min Diagnostic fluoroscopy Total fluoroscopy dose: dose: 1114 mGy 1114 mGy Contrast Material Contrast Material Type Amount (ml) Isovue 370 92 Entry Location Entry Primary Successful Side Size Upsize Upsize Entry Closure Ornelas ccessful Closure Location (Fr) 1 (Fr) 2 (Fr) Remarks Device Remarks Radial Right 6 Fr Mechanical artery Short Compression Estimated blood loss: 10 ml Diagnostic catheters Device Type Used For End Catheter Placement DIAGNOSTIC Marine 110cm 5 Procedure Fr catheter ([id number]) Procedure Complications No complications Procedure Medications Medication Administration Route Dosage 0.9% NaCl I.V. 100 ml/hr Oxygen etCO2 Nasal cannula 2 l/min Lidocaine 2% added to field 20 Radial Cocktail added to field 1 syringe (Verapamil 2mg/Nitro 400mcg/Heparin 1500units) Versed I.V. 2 mg Fentanyl I.V. 100 mcg Versed I.V. 2 mg Fentanyl I.V. 100 mcg Radial Cocktail I.A. 1 syringe (Verapamil 2mg/Nitro 400mcg/Heparin 1500units) Versed I.V. 2 mg Hemodynamics Rest Heart Rate: 90 (bpm) Snapshots Pre Cath Intra NCS Post Cath Vital Signs Time Heart Resp SPO2 etCO2 NIBP (mmHg) Rhythm Pain Sedation Rate (ipm) (%) (mmHg) Status Level (bpm) 12:54:50 70 19 98 0 125/81(94) NSR 0 (11) 10(A) , No pain 12:58:57 72 13 99 0 116/78(92) NSR 0 (11) 10(A) , No pain 13:03:00 76 17 97 26.3 112/75(86) NSR 0 (11) 10(A) , No pain 13:07:02 75 19 94 26.3 126/74(90) NSR 0 (11) 10(A) , No pain 13:11:06 82 15 93 33.1 113/82(102) NSR 0 (11) 10(A) , No pain 13:15:05 73 11 92 36.1 125/82(101) NSR 0 (11) 9(A) , No pain 13:19:13 74 18 95 36.1 119/75(95) NSR 0 (11) 9(A) , No pain 13:23:15 80 16 100 23.3 121/84(90) NSR 0 (11) 10(A) , No pain 13:27:19 86 10 99 22.5 109/81(104) NSR 0 (11) 10(A) , No pain Medications Time Medication Route Dose Verified Delivered Reason Notes E ffectiveness by by 13:01:28 0.9% NaCl I.V. 100 Kit Kit Per ml/hr Ector Barney physician RN RN 13:01:37 Oxygen etCO2 2 l/min Kit Kit for low 02 Nasal Ector Barney sats cannula RN RN 13:01:47 Lidocaine 2% added 20ml Kit Kit for local to vial Lorigan Lorigan anesthetic field RN RN 13:01:57 Radial added 1 Kit Kit used for Cocktail to syringe Lorigan Lorigan procedure (Verapamil RN RN 2mg/Nitro 400mcg/Heparin 1500units) 13:05:36 Versed I.V. 2 mg Kit Kit for sedation Ector Barney RN RN 13:05:43 Fentanyl I.V. 100 mcg Kit Kit for sedation Ector Barney RN RN 13:08:56 Versed I.V. 2 mg Kit Kit for sedation Lorjorge Barney RN RN 13:09:04 Fentanyl I.V. 100 mcg Kit Kit for sedation Ector Barney RN RN 13:09:12 Radial I.A. 1 Kit Omero for Cocktail syringe Cassigan Katarina ANTUNEZ vasodilation (Verapamil RN 2mg/Nitro 400mcg/Heparin 1500units) 13:14:13 Versed I.V. 2 mg Kit Kit for sedation Ector Barney RN clinical field specialist Log Time Note 12:36:42 Informed consent obtained and on chart 12:36:47 Admit Source: Emergency department 12:37:12 Diagnostic Cath status Elective 12:37:13 Time tracking: Regular hours (M-F 7:00 - 5:00) 12:37:17 Plan of Care:Hemodynamics will remain stable., Cardiac rhythm will remain stable., Comfort level will be maintained., Respiratory function will remain adequate., Patient/ family verbilizes understanding of procedure., Procedure tolerated without complication., Recovers from procedure without complications.. 12:37:19 Eulalio LEWIS(R) sent for patient. Start room use. 12:38:26 H&P Date Dictated: 03/26/2019 Within 30 days and on chart.. 12:47:46 Patient received from Med II to CCL 2 Alert and oriented. Tansferred to table in Supine position. 12:48:09 Pre-procedure instructions explained to patient. 12:48:09 Pre-op teaching completed and patient verbalized understanding. 12:48:10 Family in patients room. 12:48:18 Patient NPO since Midnight. 12:50:43 Warm blankets applied, and bk hugger turned on for patient comfort. 12:50:44 Correct patient and procedure confirmed by team. 12:50:45 ECG and BP/O2 sat monitors applied to patient. 12:53:46 Vital chart was started 13:01:28 0.9% NaCl 100 ml/hr I.V. was administered by Kit Barney RN; Per physician; 13:01:37 Oxygen 2 l/min etCO2 Nasal cannula was administered by Kit Barney RN; for low 02 sats; 13:01:47 Lidocaine 2% 20ml vial added to field was administered by Kit Barney RN; for local anesthetic; 13:01:57 Radial Cocktail (Verapamil 2mg/Nitro 400mcg/Heparin 1500units) 1 syringe added to field was administered by Kit Barney RN; used for procedure; 13:03:37 Baseline sample Acquired. 13:03:40 Rhythm: sinus rhythm 13:03:41 Full Disclosure recording started 13:03:53 Patient allergic to No known allergies 13:03:55 Is the patient allergic to Iodine/contrast media? No. 13:03:57 Is patient on blood thinner?Yes 13:03:59 ACC The patient was administered the following blood thiners within the last 24 hours: ACCPlavix 13:04:00 Patient diabetic? No. 13:04:02 Previous problem with sedation/anesthesia? No ? 13:04:02 Snore? Yes 13:04:03 Sleep apnea? No 13:04:04 Deviated septum? No 13:04:05 Opens mouth fully? Yes 13:04:06 Sticks out tongue? Yes 13:04:07 Airway obstruction? No ? 13:04:09 Dentures? Yes out 13:04:12 Pre procedure: right dorsailis pedis pulse 2+ Normal; easily identifiable; not easily obliterated 13:04:15 Modified Addy's test Ulnar > 7 seconds. 13:04:16 Patient pain scale 0/10 ?. 13:04:19 IV patent on arrival in left forearm with 0.9% NaCl at O. 13:04:56 Lab results completed and on chart. 13:04:58 Right Radial & Right Groin area was prepped with chlora-prep and draped in sterile fashion 13:04:59 Alarms reviewed by R. N. 13:04:59 Sharps counted by scrub and verified by R.N. 13:05:01 Use device set Radial Dx or PCI 13:05:02 ACIST Syringe (05484) opened to sterile field. 13:05:02 Medline Cath Pack ([id number]) opened to sterile field. 13:05:02 Bag Decanter (2002S) opened to sterile field. 13:05:03 ACIST Hand Control (61288) opened to sterile field. 13:05:04 ACIST Manifold (26178) opened to sterile field. 13:05:04 Tegaderm 4 x 4 (1626W) opened to sterile field. 13:05:05 MBrace Wrist Support ([id number]) opened to sterile field. 13:05:06 SHEATH 6FR Slender (87-1489) opened to sterile field. 13:05:06 DIAGNOSTIC WIRE .035 260cm J wire (567061) opened to sterile field. 13:05:14 INFLATOR Merit BasixCompak (TS6853) opened to sterile field. 13:05:22 Physician arrived 13:05:22 --------ALL STOP TIME OUT------ 13:05:23 Final Timeout: patient, procedure, and site verified with staff and physician. All members of the team are in agreement. 13:05:24 Right Radial & Right Groin site verified by team. 13:05:26 Maximum allowable Isovue 300 dose 300ml. Physician notified. (300ml for normal creatinines. For patients with creatinine of 1.7 or higher multiply weight(kg) x 5 divided by creatinine.) 13:05:29 Fire Safety Assessment: A--An alcohol-based skin anteseptic being used preoperatively., C--Open oxygen or nitrous oxide is being used., D--An ESU, laser, or fiber-optic light is being used. 13:05:31 Physical assessment completed. ASA score P 2 - A patient with mild systemic disease as per Omero Bray MD. 13:05:33 Sedation plan: IV Moderate Sedation Medication:Versed, Fentanyl 13:05:36 Versed 2 mg I.V. was administered by Kit Barney RN; for sedation; 13:05:43 Fentanyl 100 mcg I.V. was administered by Kit Barney RN; for sedation; 13:07:28 Procedure started. 13:07:41 Local anesthetic to right radial artery with Lidocaine 2% by Omero Bray MD.INITIAL ACCESS ONLY 13:07:50 A 6 Fr Short sheath was inserted into the Right Radial artery 13:07:53 Zero performed for pressure channel P1 13:08:01 A DIAGNOSTIC Marine 110cm 5 Fr catheter (642758) was advanced over the wire and used for Procedure. 13:08:56 Versed 2 mg I.V. was administered by Kit Barney RN; for sedation; 13:09:04 Fentanyl 100 mcg I.V. was administered by Kit Barney RN; for sedation; 13:09:12 Radial Cocktail (Verapamil 2mg/Nitro 400mcg/Heparin 1500units) 1 syringe I.A. was administered by Omero Bray MD; for vasodilation; 13::34 LV gram done using QUINTERO 13::36 Injector settings: Ml/sec: 5, Volume: 15, 13:09:49 LV hemodynamics recorded. 13:09:53 EF : 60 % 13:09:54 RCA angiography performed. 13:10:50 Catheter exchanged over wire. 13:11:00 GUIDE 6FR XBLAD 3.5 catheter ([id number]) opened to sterile field. 13:11:04 GUIDE 6FR AR 2.0 catheter ([id number]) opened to sterile field. 13:11:05 Ramseur Verrata Plus pressure wire (47872J) opened to sterile field. 13:12:19 Catheter exchanged over wire. 13:12:26 6 Fr xblad 3.5 guide catheter was inserted over the wire 13:12:54 LCA angiography performed. 13:14:13 Versed 2 mg I.V. was administered by Kit Barney RN; for sedation; 13:17:16 FFR/IFR wire advanced. 13:18:43 Wire removed. 13:18:45 Guide catheter removed. 13:19:00 6 Fr ar 2 guide catheter was inserted over the wire 13:20:42 FFR/IFR wire advanced. 13:21:53 Wire advanced across lesion. 13:22:34 rca lesion measured at 1.0 with IFR 13:22:42 Wire removed. 13:22:43 Guide catheter removed. 13:22:46 TR BAND Standard ([id number]) opened to sterile field. 13:23:43 Sheath removed intact; hemostasis achieved with Mechanical Compression to the Right Radial artery. 13:23:45 Procedure ended.(Physican Out) 13::34 Fluoroscopy time 07.60 minutes. 13::38 Flurop Dose total: 1114 13::38 Fluoroscopy dose: 1114 mGy 13:26:42 Contrast amount:Isovue 370 92ml. 13:26:48 Sharps counted by scrub and verified by R.N. 13:26:50 TR band inflated with 10cc of air. 13:26:50 Insertion/operative site no bleeding no hematoma. 13:26:56 Post right radial artery:stable, soft, clean and dry 13:26:57 Post Procedure Pulses reassessed and unchanged 13:26:59 Post-procedure physical assessment completed. ASA score P 2 - A patient with mild systemic disease as per Omero Bray MD. 13:27:11 Post procedure rhythm: unchanged. 13:27:17 Estimated blood loss: 10 ml 13:27:20 Post procedure instruction explained to patient.Patient verbalizes understanding. 13:27:32 Patient needs reinforcement of post procedure teaching. 13:27:46 Procedure type changed to Cath procedure, Diagnostic procedure, LHC, LHC w/Coronaries, FFR/IVUS, FFR Initial, Sedation Charges, Moderate Sedation up to 15 minutes 13:28:30 Procedure and supply charges have been captured, reviewed, submitted and are correct. 13:28:32 Procedure Complication : No complications 13:28:34 Vital chart was stopped 13:28:35 See physician's report for complete and final results. 13:28:36 Report given to Pre/Post Procedure Room. 13:28:38 Patient transfered to Pre/Post Procedure Room with Stretcher. 13:28:40 Procedure ended. 13:28:40 Full Disclosure recording stopped 13:28:43 End room use (Document Last) Device Usage Item Name Manufacture Quantity Catalog Hospital Part Current Mini mal Lot# / Number Charge Number Stock Stock Serial# Code ACIST Acist 1 83072 130190 593754 688098 20 Syringe Medical (19213) Systems Inc Medline Medline 1 [id number] 573705 94031 735840 5 Cath Pack ([id number]) Bag Microtek 1 284743 68583 502119 5 Decanter Medical Inc. () ACIST Hand Acist 1 89383 377160 402998 070268 5 Control Medical (71814) Systems Inc ACIST Acist 1 09381 475997 693667 391461 5 Manifold Medical (50644) Systems Inc Tegaderm 4 3M 1 1626W 362951 130194 561657 5 x 4 (1626W) MBrace Advanced 1 140-0250-00 799903 49656 447876 5 Wrist Vascular Support Dynamics ([id number]) SHEATH 6FR Terumo 1 [id number] 422593 112128 438095 5 Slender (80-1060) DIAGNOSTIC St Octavio 1 780096 769743 625892 729269 30 WIRE .035 260cm J wire (930056) INFLATOR Merit 1 HS6967 267508 617537 924537 15 Merit Medical BasixCompak (LE7613) DIAGNOSTIC Terumo 1 405013 997103 152036 612458 5 Marine 110cm 5 Fr catheter (948657) GUIDE 6FR Cardinal 1 09878532 808204 479891 595695 10 XBLAD 3.5 Health catheter (19623580) GUIDE 6FR Medtronic 1 OS9WY98 384808 17670 396169 1 AR 2.0 catheter (EG6CI62) Ramseur Ramseur 1 17776V 404119 696483949 141110 5 Verrata Plus pressure wire (59286N) TR BAND Terumo 1 [id number] 826364 352396 291375 40 Standard ([id number]) Signature Audit [place] Stage Time Signature Unsigned Intra-Procedure 03/26/2019 Javier Ventura 1:29:01 PM RT(R) Signatures Monitor : Javier Ventura RT Signature : Date : Time : [facility] [address] [place] [address]
--- NOTE | ~2019-03-25 | DS ---
PATIENT:ELIANE QUIJANO [place] :70 MEDICAL RECORD: [id number] DISCHARGE SUMMARY ADMISSION DATE: 03/26/19 DISCHARGE DATE: 03/26/19 DATE OF DISCHARGE: 03/26/2019. DIAGNOSES: 1. Angina. 2. Abnormal ECG. 3. Coronary artery disease. 4. Previous inferior myocardial infarction. 5. Previous percutaneous transluminal coronary artery stent, right coronary artery and left anterior descending. 6. Hypertension. 7. Hyperlipidemia. HOSPITAL COURSE: Mr. Quijano presents with recurrent anginal symptomatology with EKG changes. He, however, had no significant new dynamic disease. He has wide patency of his previously placed stents. Discharged home to continue his current medications. If he continues to have anginal symptomatology would consider nitro dural patch. TRANSINT:[id number] Voice Confirmation ID: [id number] DOCUMENT ID: [id number] SONIA POWELL MD CC: [id number] DICTATION DATE: 03/26/19 1327 CHEMICAL LAB TECHNICIAN: 03/27/19 0257 DIS IN 03/26/19 [facility] [address] [place] [address]
[2019-03-26 00:42] LABS: CKMB 0.6 U/L (0.0-3.6); CREATINE KINASE 95 UL (21-232); TROPONIN-I < 0.017 ng/mL (0.000-0.060)
[2019-03-26] MEDS ORDERED: TRAZODONE HCL150 MG PO (02:55)
--- NOTE | 2019-03-26 03:02 | NUR ---
PT ADMIT ASSESSMENT COMPLETE. PT IS AAO, UP AD ASHLEY WITH STEADY GAIT. SPOUSE ILDA AT BEDSIDE [phone] PT IS TO BE NPO UNTIL SEEING DISEASE CASE MANAGER RN IN THE MORNING, DID GIVE PT A SANDWICH AND 125ML OF SPRITE. PT HAS NOT HAD FOOD SINCE 1500 WHEN AT [place]. TELEMETRY PLACED PT IS 64 NS. LEFT AC 20G S/L PT HAS WHEEZES ON EXHALE IN RML,RLL PT WILL CALL FOR ASSIST WHEN NEEDED. WILL CPOC
[2019-03-26 03:06] VITALS: BP 107/72; BMI 27.9
[2019-03-26 03:37] LABS: CKMB 0.9 U/L (0.0-3.6); CREATINE KINASE 92 UL (21-232); TROPONIN-I < 0.017 ng/mL (0.000-0.060)
[2019-03-26 04:00] VITALS: BP 116/80
--- NOTE | 2019-03-26 06:00 | NUR ---
PT DENIES ANY NEEDS. NO S/S OF DISTRESS. PT WILL CALL FOR ASSIST WILL CPOC
--- NOTE | 2019-03-26 07:35 | NUR ---
ASSESSMENT COMPLETED. ALERT AND ORIENTED. TELEMERTY SHOWS SR 69. LEFT HAND SL. UP AB ASHLEY. NPO AFTER BREAKFAST FOR CATH. SR UP WITH CALL LIGHT IN REACH. FAMILY AT BEDSIDE
[2019-03-26 07:56] VITALS: BP 114/69
--- NOTE | 2019-03-26 08:04 | NUR ---
ASSESSMENT COMPLETED. ALERT AND ORIENTED. DENIES ANY PAIN OR DISCOMFORT. TELEMERTY SHOWS SR. SL TO LEFT AC, PATENT. FAMILY AT BEDSIDE. SR UP WITH CALL LIGHT IN REACH
[2019-03-26 08:35] LABS: CKMB 0.7 U/L (0.0-3.6); CREATINE KINASE 88 UL (21-232); TROPONIN-I < 0.017 ng/mL (0.000-0.060)
--- NOTE | 2019-03-26 10:05 | NUR ---
I have reviewed this patient and I concur with the Shift Assessment completed by the Licensed Practical Nurse today this shift.
[2019-03-26 11:37] VITALS: BP 104/66
[2019-03-26 12:29] VITALS: Ht 180.3 cm; Wt 90.7 kg
--- NOTE | 2019-03-26 13:35 | NUR ---
PT HAD A CATH AND WILL BE DISCHARGED FROM BRAND AMBASSADOR PROMOTIONAL MODEL
--- NOTE | 2019-03-26 13:42 | MORECARE ---
CASE MANAGEMENT DISCHARGE SUMMARY PATIENT: ELIANE BARRAGAN ARGUELLES UNIT: [id number] ADM DATE: 03/26/19 AGE: 48 : [birth year] SEX: M ROOM/BED: D.2120 AUTHOR: WILI BETTENCOURT PHYSICIAN: REFERRING PHYSICIAN: SONIA POWELL MD DATE OF SERVICE: 03/26/19 Discharge Plan Patient Name: ELIANE BARRAGAN [facility] [facility] 1970 Planned Disposition: Home Anticipated Discharge Date: 03/26/19 Discharge Date: Expected LOS: 1 Initial Reviewer: [email or web address] Initial Review Date: 03/26/2019 Generated: 03/26/19 2:42 pm Patient Name: ELIANE BARRAGAN Page 14734 at 1342 All edits/amendments must be made on the electronic document DICTATION DATE: 03/26/19 1341 SCHOOL LUNCH MANAGER: MARIAH 03/26/19 1341 RPT#: [id number] DC DATE: STATUS: ADM IN [facility] [address] [place] [address] END OF REPORT
--- NOTE | 2019-03-26 13:47 | NUR ---
RECIEVED TO ROOM VIA STRETCHER FROM [employer] WITH TR BAND TO R/WRIST CDI NO BLEEDING OR HEMATOMA NOTED. PATIENT CONNECTED TO MONITOR FOR OBSERVATION WITH HR 87 BP 117/77 CHEST PAIN IS DENIED.
--- NOTE | 2019-03-26 14:00 | NUR ---
TR BAND REMAINS CDI WITH NO BLEEDING OR HEMATOMA. CAP REFILL IS BRISK WITH R/HAND WARM TO TOUCH
--- NOTE | 2019-03-26 14:15 | NUR ---
DR POWELL AT BEDSIDE NO NEW ORDERS.
--- NOTE | 2019-03-26 14:34 | NUR ---
4 CC AIR REMOVED FROM TR BAND WITH NO BLEEDING. SANDWICH AND SODA TO BEDSIDE
--- NOTE | 2019-03-26 14:55 | NUR ---
3cc OF AIR REMOVED FROM TR BAND. NO BLEEDING/HEMATOMA NOTED. FAMILY AT BEDSIDE. VSS.
[2019-03-26] MEDS ORDERED: NITROSTAT0.4 MG SL (15:05)
[2019-03-26] MEDS ORDERED: VALIUM5 MG PO (15:06)
--- NOTE | 2019-03-26 15:21 | NUR ---
3cc OF AIR REMOVED FROM TR BAND. PT TOLERATED WELL. NO BLEEDING/HEMATOMA NOTED. LEFT AC PIV D/C'D WITH CATH TIP INTACT. PT INSTRUCTED TO GET DRESSED.
--- NOTE | 2019-03-26 15:24 | NUR ---
PT UP TO RESTROOM. VOIDED WITHOUT DIFFICULTY.
--- NOTE | 2019-03-26 15:30 | NUR ---
RIGHT RADIAL TR BAND REMOVED AND DRESSING APPLIED. NO BLEEDING/HEMATOMA NOTED. RIGHT WRIST BRACE IN PLACE. PT INSTRUCTED TO KEEP ON FOR 2 HOURS ONCE HE ARRIVES HOME. DISCUSSED DISCHARGE INSTRUCTIONS WITH PT AND PT'S FAMILY. THEY VOICED UNDERSTANDING.
--- NOTE | 2019-03-26 15:42 | NUR ---
PT TAKEN OUT TO VEHICLE. HE AMBULATED, DID NOT WANT WHEELCHAIR. ALL BELONGINGS AND PAPERWORK WITH HIS FAMILY. NO S/S OF DISTRESS NOTED.
--- NOTE | 2019-03-26 16:42 | HP ---
PATIENT: ELIANE BARRAGAN CA[place]O MEDICAL RECORD: [id number] ACCOUNT: [id number] LOCATION:[facility] : [birth year] ADMISSION DATE: 03/26/19 PCP: SWETA MCHUGH HISTORY AND PHYSICAL EXAMINATION ADMITTING DIAGNOSES: 1. Angina. 2. Coronary artery disease. 3. Recent myocardial infarction with PTCA stent right coronary artery and left anterior descending. 4. Hypertension. 5. Hyperlipidemia. HISTORY OF PRESENT ILLNESS: Mr. Barragan is status post recent inferior myocardial infarction, percutaneous transluminal coronary angioplasty stent of RCA with concomitant disease of LAD and PTCA stent of LAD. He did well until yesterday. Yesterday evening after work, he developed chest discomfort like that of his previous angina. He presented to [facility]. It was felt that he was having an acute myocardial infarction. He was transferred here. His EKG is grossly abnormal, but is not a ST elevation IN. He was initially pain free here this morning. He is having chest discomfort again. His EKG has deep T-wave inversions inferiorly as well as laterally. He does have changes on his EKG from [place], the inferior inversion is much worse and the lateral inversion is new. PHYSICAL EXAMINATION: GENERAL APPEARANCE: Well-nourished, well-developed, appears stated age. Level of distress, comfortable. PSYCHIATRIC: Mental status, alert, normal affect. Orientation, oriented to time, place and person. EYES: Lids and conjunctiva, noninjected. No discharge, no pallor. ENT: Lips, teeth, gums, normal dentition. Oropharynx, no cyanosis, no pallor. NECK: Carotid arteries, bilateral normal upstroke, no bruits, no thrills. JUGULAR VEINS: No jugular venous pressure or distention. CERVICAL LYMPH NODES: Nontender, nonenlarged. THYROID: Not enlarged. Nontender. No nodules. LUNGS: Respiratory effort, unlabored. CHEST: Normal curvature. No thoracic deformity. No chest wall tenderness. Percussion, resonant. Auscultation, clear. No wheezes, no rales, no rhonchi. CARDIOVASCULAR: Precordial exam, nondisplaced. No heaves or pericardial thrills. Rate and rhythm, regular. Heart sounds, normal S1, normal S2. No S3, no gallop, no rub. Systolic murmur, not heard. Diastolic murmur, not heard. EXTREMITIES: No cyanosis, no edema. Peripheral pulses, full and equal in all extremities, except as noted. No bruits appreciated. ABDOMEN: Soft, nondistended. Normal aorta. No bruit. Nontender. No masses. Liver, nontender, no hepatomegaly. Spleen, nontender, no splenomegaly. MUSCULOSKELETAL: No joint tenderness. No joint swelling. No erythema. NEUROLOGICAL: Normal gait, normal strength, normal tone. SKIN: Warm and dry. OVERALL IMPRESSION: Unstable angina with continued pain, recent myocardial infarction, recent 2-vessel PTCA stent and grossly abnormal ECG. We will proceed with coronary angiography. Further care depends upon the findings of the angiography. HISTORY AND PHYSICAL [id number] ELIANE BARRAGAN TRANSINT:[id number] Voice Confirmation ID: [id number] DOCUMENT ID: [id number] SONIA POWELL MD at 1642 CC: [id number] DICTATION DATE: 03/26/19917 CHIEF SUSTAINABILITY OFFICER: 03/26/19929 DIS IN 03/26/19 [facility] [address] [place] [address]
--- NOTE | 2019-03-26 16:42 | OP ---
PATIENT NAME: ELIANE BARRAGAN MEDICAL RECORD: [id number] :70 LOCATION:[facility] ADMISSION DATE:03/26/19 SURGEON: SONIA POWELL MD DATE OF OPERATION: 03/26/2019 DATE OF SERVICE: 03/26/2019 PROCEDURES: 1. Left heart catheterization. 2. Selective coronary angiography. 3. Left ventriculogram. 4. IFR of RCA. INDICATION: Angina, coronary artery disease, previous percutaneous transluminal coronary angioplasty stent, right coronary artery and circumflex. PROCEDURE IN DETAIL: After informed consent was obtained and after detailed explanation of risks, benefits as well as alternative therapies, the patient elected to proceed with angiogram and heart catheterization. The right radial area was prepped and draped in normal sterile fashion. Right radial artery was cannulated via modified Seldinger technique with placement of 6-Ugandan sheath. All catheters exchanged through this sheath. FINDINGS: Left ventriculogram was performed in standard 30-degree QUINTERO view, reveals good cardiac wall motion, ejection fraction of 50%. SELECTIVE CORONARY ANGIOGRAPHY: 1. Left main is with no significant angiographic disease. 2. Left anterior descending has previously placed stents, these are widely patent with no significant restenosis. No disease elsewise at the LAD or its branches. 3. Left circumflex has approximately 50% stenosis in the proximal mid vessel. This does not appear to be flow limiting or unchanged from previous angiography. 4. The right coronary has a previously placed stent distally. There is a questionable stenosis proximal to this that would explain his EKG changes; however, the IFR was normal. OVERALL IMPRESSION: Wide patency of the previously placed stents with no significant thrombosis or restenosis. No significant disease elsewise. Continue medical management of the coronary artery disease and cardiac risk factors. TRANSINT:[id number] Voice Confirmation ID: [id number] DOCUMENT ID: [id number] SONIA POWELL MD at 1642 CC: [id number] DICTATION DATE: 03/26/19 1326 ARCHITECTURAL EXAMINER: 03/26/19 1418 DIS IN 03/26/19 [facility] [address] [place] [address]
== END 2019-03-26 15:42 | disposition home or self-care (01) ==
LOC: D.ER 23:07 → OBSVTIME 03-26 01:13 → D.EDHOLD 03-26 01:13 → D.M2 03-26 01:30 → D.CLR 03-26 13:43
PROVIDERS: Emergency Medicine; ADMIT Internal Medicine Interventional Cardiology; ATTEND Internal Medicine Interventional Cardiology
DX: I25.119 Atherosclerotic heart disease of native coronary artery with unspecified angina pectoris (principal); R94.31 Abnormal electrocardiogram [ECG] [EKG]; I10 Essential (primary) hypertension; E78.5 Hyperlipidemia, unspecified